=== PATIENT | male | born 1950 | race Caucasian/White ===

== ENCOUNTER 2016-09-11 15:10 | Emergency (ER) | payer MEDICARE, BC ==
[~2016-09-11] VITALS: Ht 182.9 cm; Wt 192.8 kg
[~2016-09-11 15:10] MED LIST: AMLO5TAB2 PO; CANA100T PO; CARV40CP PO; CLON0.2T PO; INSU100I13 SQ; INSU100I17 SQ; INSU100V13 SQ; METF10002 PO; MULT-18 PO; POTA10TA12 PO; vitamin c PO
[2016-09-11] MEDS ORDERED: LIDOCAINE/EPI/TETRACAINE TOPICAL GEL 3 ML. TP ONE ×2 (15:29→16:30)
--- NOTE | 2016-09-11 16:00 | RAD ---
CT head without contrast History: Fall and laceration to the head. Comparison: None. Procedure: Axial images are obtained of the head from the skull base through the vertex without IV contrast. Findings: The ventricles and sulci are normal for the patient's age. No mass-effect, intracranial mass, midline shift, hemorrhage or obvious acute infarction is identified. Basilar cisterns are patent. Bone windows demonstrate no significant calvarial abnormality. The visualized paranasal sinuses appear clear. Mild soft tissue prominence identified in the superior vertex could be artifact or due to small scalp contusion. Multiple hyperdensities in the bilateral basal ganglia probably faint calcifications.. Impression: 1. No acute intracranial process. Mild soft tissue prominence identified in the superior vertex could be artifact or due to small scalp contusion. PQRS Compliance Statement: One or more of the following individualized dose reduction techniques were utilized for this examination: 1. Automated exposure control 2. Adjustment of the mA and/or kV according to patient size 3. Use of iterative reconstruction technique
--- NOTE | 2016-09-11 16:07 | ED.ADGEN ---
Past History Past Medical History: Diabetes, GERD, High Cholesterol, Hypertension Past Surgical History: Appendectomy Alcohol Use: None Drug Use: None Adult General HPI HPI Patient is a 65-year-old male presents emergency department by EMS. Patient had a mechanical slip and fall just prior to arrival. He struck the back of his head against a stair and has a small 3 cm laceration with controlled bleeding patient denies any loss of consciousness. Denies any visual or gait disturbances. Denies any other injuries. Review of Systems Review of Systems Constitutional: Denies fever or chills [] Eyes: Denies change in visual acuity, redness, or eye pain [] HENT: Denies nasal congestion or sore throat [] Respiratory: Denies cough or shortness of breath [] Cardiovascular: No additional information not addressed in HPI [] GI: Denies abdominal pain, nausea, vomiting, bloody stools or diarrhea [] : Denies dysuria or hematuria [] Musculoskeletal: Denies back pain or joint pain [] Integument: Denies rash or skin lesions [] Neurologic: Denies headache, focal weakness or sensory changes [] Endocrine: Denies polyuria or polydipsia [] Current Medications Current Medications Current Medications Medications (Trade) Dose Ordered Sig/Sadie Start Time Stop Time Status Last Admin Dose Admin Lidocaine/ Epinephrine (Let Topical) 3 ml STK-MED ONCE 09/11/16 15:29 09/11/16 15:30 DC Allergies Allergies Allergies Coded Allergies Type Severity Reaction Last Updated Verified Antifungal - Imidazole Allergy Intermediate 12/28/14 Yes I S O L A T I O N *CONTACT* Allergy Unknown 12/31/14 Yes Physical Exam Physical Exam Constitutional: Well developed, well nourished, no acute distress, non-toxic appearance. [] HENT: Normocephalic, 3 cm laceration to the back of his head, bilateral external ears normal, oropharynx moist, no oral exudates, nose normal. [] Eyes: PERRLA, EOMI, conjunctiva normal, no discharge. [] Neck: Normal range of motion, no tenderness, supple, no stridor. [] Cardiovascular:Heart rate regular rhythm, no murmur [] Lungs & Thorax: Bilateral breath sounds clear to auscultation [] Abdomen: Bowel sounds normal, soft, no tenderness, no masses, no pulsatile masses. [] Skin: Warm, dry, no erythema, no rash. [] Extremities: No tenderness, no cyanosis, no clubbing, ROM intact, no edema. [] Neurologic: Alert and oriented X 3, normal motor function, normal sensory function, no focal deficits noted. [] Psychologic: Affect normal, judgement normal, mood normal. [] Current Patient Data Vital Signs Vital Signs Date Time Temp Pulse Resp B/P Pulse Ox O2 Delivery O2 Flow Rate FiO2 09/11/16 15:15 98.1 92 16 98 Room Air EKG EKG [] Radiology/Procedures Radiology/Procedures CT head without contrast History: Fall and laceration to the head. Comparison: None. Procedure: Axial images are obtained of the head from the skull base through the vertex without IV contrast. Findings: The ventricles and sulci are normal for the patient's age. No mass-effect, intracranial mass, midline shift, hemorrhage or obvious acute infarction is identified. Basilar cisterns are patent. Bone windows demonstrate no significant calvarial abnormality. The visualized paranasal sinuses appear clear. Mild soft tissue prominence identified in the superior vertex could be artifact or due to small scalp contusion. Multiple hyperdensities in the bilateral basal ganglia probably faint calcifications.. Impression: 1. No acute intracranial process. Mild soft tissue prominence identified in the superior vertex could be artifact or due to small scalp contusion. PQRS Compliance Statement: One or more of the following individualized dose reduction techniques were utilized for this examination: 1. Automated exposure control 2. Adjustment of the mA and/or kV according to patient size 3. Use of iterative reconstruction technique DICTATED AND SIGNED BY: VERONICA OWENS MD DATE: 09/11/16 1553 CC: KATE VERA MD; BERNA VU MD ~[] Course & Med Decision Making Course & Med Decision Making Pertinent Labs and Imaging studies reviewed. (See chart for details) Reassuring workup. Tolerated procedure well. Given supportive care and follow up instructions. [] Final Impression Final Impression scalp contusion scalp laceration[] Problems: Dragon Disclaimer Dragon Disclaimer This electronic medical record was generated, in whole or in part, using a voice recognition dictation system. Laceration Repair Lac Repair Indication: laceration Procedure: The patient was placed in the appropriate position and anesthesia around the lac was achieved with LET. The area was then cleansed. The laceration was closed with 3 yesica. The wound area was then dressed with bandaged Total repaired wound length: 3 cm Other Items: none The patient tolerated the procedure well Complications: none KATE VERA MD Sep 11, 2016 16:06
[2016-09-11 16:15] VITALS: BP 150/76
[2016-09-11] MEDS ORDERED: MIRA50TA PO (20:43)
[2016-09-11] MEDS ORDERED: METF10002 PO (20:43)
[2016-09-12] MEDS ORDERED: DRON400T PO (00:24)
[2016-09-12] MEDS ORDERED: NYST15CR TP (02:18)
[2016-09-12] MEDS ORDERED: INSU100I32 SQ (02:21)
== END 2016-09-11 16:35 | disposition home or self-care (01) ==
LOC: ER 15:10
DX: S00.03XA Contusion of scalp, initial encounter (principal); E11.9 Type 2 diabetes mellitus without complications; E78.00 Pure hypercholesterolemia, unspecified; K21.9 Gastro-esophageal reflux disease without esophagitis; I10 Essential (primary) hypertension; Z88.8 Allergy status to other drugs, medicaments and biological substances; Z91.041 Radiographic dye allergy status; W01.198A Fall on same level from slipping, tripping and stumbling with subsequent striking against other object, initial encounter; Y93.89 Activity, other specified; Y99.8 Other external cause status; Y92.89 Other specified places as the place of occurrence of the external cause
CPT/HCPCS: 12002; 70450; 99284-25

== ENCOUNTER 2016-09-11 17:13 | Inpatient (IN) | payer MEDICARE, BC ==
[~2016-09-11] VITALS: Ht 182.9 cm; Wt 197.8 kg
[2016-09-11] MEDS ORDERED: ONDANSETRON PF 4 MG/2 ML VIAL. IV PRN (18:15)
[2016-09-11] MEDS ORDERED: IV RINGERS SOLUTION,LACTATED 1,000 ML IV ONE ×2 (18:15)
--- NOTE | 2016-09-11 18:19 | ED.ADGEN ---
Past History Past Medical History: Diabetes, GERD, High Cholesterol, Hypertension, Other Past Surgical History: Appendectomy, Other Alcohol Use: None Drug Use: None Adult General Chief Complaint Chief Complaint " I was at [facility] office.. because I have been weak... fever... and just tired... they said I had the flu or a virus...".." I was at home.... and was going up the stairs.. and I fell and hit my head..." HPI HPI Patient is a 65 year old male who presents with above hx and complaints. Pt. recently given a diagnosis of influenza or viral syndrome. Patient normally follows Dr. Heredia. No recent travel. No specific ill contacts. Patient has contusion to the front forehead. CT completed earlier by Dr. Joyce showed no acute intracranial process. There is mild soft tissue prominence in the superior Vertex skull or contusion. Pt. family is quite concerned and pt. has agreed to be admitted for further eval and tx. Review of Systems Review of Systems Constitutional: Hx of fever or chills [] Eyes: Denies change in visual acuity, redness, or eye pain [] HENT: Denies nasal congestion or sore throat [] Hx. hit head Respiratory: Denies cough or shortness of breath [] Cardiovascular: No additional information not addressed in HPI [] GI: Denies abdominal pain, nausea, vomiting, bloody stools or diarrhea [] : Denies dysuria or hematuria [] Musculoskeletal: Denies back pain or joint pain []Generalized weakness. Integument: Denies rash or skin lesions [] Neurologic: Denies headache, focal weakness or sensory changes [] Endocrine: Denies polyuria or polydipsia [] Family History Family History Non-contributory Current Medications Current Medications Current Medications Medications (Trade) Dose Ordered Sig/Sadie Start Time Stop Time Status Last Admin Dose Admin Lactated Ringer's (Iv Lactated Ringers) 1,000 ml @ 100 mls/hr 1X ONCE 09/11/16 18:15 09/12/16 04:14 Ondansetron HCl 4 mg 4 mg PRN Q4HRS PRN 09/11/16 18:15 09/12/16 18:14 See Nursing for home meds Allergies Allergies Allergies Coded Allergies Type Severity Reaction Last Updated Verified Antifungal - Imidazole Allergy Intermediate 12/28/14 Yes I S O L A T I O N *CONTACT* Allergy Unknown 12/31/14 Yes See Nursing Physical Exam Physical Exam Constitutional:mild distress, non-toxic appearance. [] HENT: Normocephalic, contusion to forehead, , bilateral external ears normal, oropharynx moist, no oral exudates, nose normal. [] Eyes: PERRLA, EOMI, conjunctiva normal, no discharge. [ Glasses Neck: Normal range of motion, no tenderness, supple, no stridor. [] Neck more 17 circ. Cardiovascular: irregular Heart rate, Irregular rhythm, no murmur , Monitor PVCs, no p waves. Lungs & Thorax: Bilateral breath sounds clear to auscultation [] Abdomen: Bowel sounds normal, soft, no tenderness, no masses, no pulsatile masses. [] Old surgery Scar. Morbid obesity. Skin: Warm, dry,. Veinous stasis ulcer Rt. leg and erythema. Back: No tenderness, no CVA tenderness. [] Extremities: bilateral leg tenderness, no cyanosis, no clubbing, ROM intact, generalize weakness, unable to stand independent with out give away weakness, bilateral ankle edema. Veinous stasis changes. Ulcer 5x5 cm Rt meyers. Neurologic: Alert and oriented X 3, normal motor function, normal sensory function, no focal deficits noted. [] Psychologic: Affect normal, judgement normal, mood normal. [] Current Patient Data Vital Signs Vital Signs Date Time Temp Pulse Resp B/P Pulse Ox O2 Delivery O2 Flow Rate FiO2 09/11/16 17:13 101.3 92 24 93 Room Air Lab Results Laboratory Tests Test 09/11/16 18:15 Urine Collection Type Unknown Urine Color Yellow Urine Clarity Clear Urine pH 5.5 Urine Specific [place] 1.020 Urine Protein 30 mg/dl (NEG-TRACE) Urine Glucose (UA) Negmg/dL (NEG) Urine Ketones (Stick) 15mg/dL (NEG) Urine Blood Mod (NEG) Urine Nitrite Neg (NEG) Urine Bilirubin Neg (NEG) Urine Urobilinogen Dipstick 0.2mg/dL (0.2 mg/dL) Urine Leukocyte Esterase Neg (NEG) Urine RBC 6-10/HPF (0-2) Urine WBC 1-4/HPF (0-4) Urine Squamous Epithelial Cells Mod/LPF Urine Bacteria Few/HPF (0-FEW) Urine Mucus Mod/LPF Urine Opiates Screen Neg (NEG) Urine Methadone Screen Neg (NEG) Urine Barbiturates Neg (NEG) Urine Phencyclidine Screen Neg (NEG) Urine Amphetamine/Methamphetamine Neg (NEG) Urine Benzodiazepines Screen Neg (NEG) Urine Cocaine Screen Neg (NEG) Urine Cannabinoids Screen Neg (NEG) Urine Ethyl Alcohol Neg (NEG) EKG EKG My interpretation of EKG shows rate 91, Afib, PVCs, Lt. axis[] Radiology/Procedures Radiology/Procedures My interpretation of CXR shows cardiomegaly and pulmonary arteries. Blunting of the closed phrenic angles. CT of chest pending at time of admission. My interpretation CT head shows no shift, mass, cerebral edema, bleed or fracture. Does have findings soft tissue scalp at the area of contusion. Ultrasound and Dopplers studies pending at time of admission Course & Med Decision Making Course & Med Decision Making Pertinent Labs and Imaging studies reviewed. (See chart for details). Call placed to Dr. Uribe- Dr. Joyce. Plan admit for further eval. and tx. Discussed presentation, testing and tx plan with Dr. Uribe- will admit for further eval. and tx. Consult to Dr. Patel- for elev. trop,, htn, pvcs. Lovenox held- due low platelets. [] Final Impression Final Impression 1. Falling 2. Fever 3. Weakness 4. Head Injury 5. Morbid Obesity[] 6. Veinous Status Ulcer Rt leg 7. Pulmonary hypertension 8. CHF 9. Hypo-magnesium 10. Leukocytosis 11. . Anemia 12. Thrombocytopenia 13. Elevated D-dimer 14. Elevated Trop. 15. Moderate Malnutrition Alb. 3.1 16. DM 17. Deconditioned 18. Afib. / PVCs- CADz Problems: Dragon Disclaimer Dragon Disclaimer This electronic medical record was generated, in whole or in part, using a voice recognition dictation system. RENETTA CLEMONS MD Sep 11, 2016 18:18
--- NOTE | 2016-09-11 18:38 | EKG ---
[address] [address] Test Date: 2016-09-11 Test Time: 18:36:44 Pat Name: RICCI LEVINE Department: Room: Gender: M [employer]: : 1950 Requested By: RENETTA CLEMONS Order Number: [id number] Reading MD: Measurements Intervals [place] Rate: 91 P: [place]: QRS: -11 QRSD: 94 T: 112 QT: 338 QTc: 423 Interpretive Statements IRREGULAR RHYTHM, NO P-WAVE FOUND VENTRICULAR PREMATURE COMPLEX(ES) LEFTWARD AXIS QRS(T) CONTOUR ABNORMALITY CONSIDER ANTEROSEPTAL MYOCARDIAL DAMAGE T ABNORMALITY IN HIGH LATERAL LEADS ABNORMAL ECG
[2016-09-11 18:56] LABS: BASO % 0 % (0-3); EOS % 0 % (0-3); HEMATOCRIT 37.9 % (39.0-53.0); HEMOGLOBIN 12.4 g/dL (13.0-17.5); LYMPH # 0.7 x10^3/uL (1.0-4.8); LYMPH % 6 % (24-48); MEAN CORPUSCULAR HEMOGLOBIN 29 pg (25-35); MEAN CORPUSCULAR HGB CONC 33 g/dL (31-37); MEAN CORPUSCULAR VOLUME 90 fL (79-100); MONO # 1.8 x10^3/uL (0.0-1.1); MONO % 14 % (0-9); NEUT % 80 % (31-73); PLATELET COUNT 73 x10^3/uL (140-400); RED BLOOD COUNT 4.21 x10^6/uL (4.30-5.70); WHITE BLOOD COUNT 12.6 x10^3/uL (4.0-11.0)
[2016-09-11 19:02] LABS: AMPHETAMINE/METHAMPHETAMINE NEG (NEG); BARBITURATES NEG (NEG); BENZODIAZEPINES NEG (NEG); CANNABINOIDS NEG (NEG); COCAINE NEG (NEG); METHADONE NEG (NEG); OPIATES NEG (NEG); PHENCYCLIDINE NEG (NEG)
[2016-09-11 19:13] LABS: BILIRUBIN,URINE NEG (NEG); CLARITY,URINE CLEAR; COLOR,URINE YELLOW
[2016-09-11 19:14] LABS: NITRITE,URINE NEG (NEG); UROBILINOGEN,URINE 0.2 mg/dL (0.2 mg/dL)
[2016-09-11 19:16] LABS: ALBUMIN 3.1 g/dL (3.4-5.0); CALCIUM 8.7 mg/dL (8.5-10.1); CREATININE 1.1 mg/dL (0.7-1.3); MAGNESIUM 1.6 mg/dL (1.8-2.4); POTASSIUM 4.3 mmol/L (3.5-5.1); TOTAL BILIRUBIN 0.9 mg/dL (0.2-1.0); TOTAL PROTEIN 8.3 g/dL (6.4-8.2)
[2016-09-11 19:21] LABS: DIRECT BILIRUBIN 0.3 mg/dL (0.0-0.2)
[2016-09-11 19:24] LABS: BACTERIA,URINE FEW /HPF (0-FEW); SQUAMOUS EPITHELIAL CELL,UR MOD /LPF
[2016-09-11 19:29] LABS: GLUCOSE,URINE NEG (NEG)
[2016-09-11 19:56] LABS: INFLUENZA A PATIENT NEGATIVE (NEGATIVE); INFLUENZA B PATIENT NEGATIVE (NEGATIVE)
[2016-09-11] MEDS ORDERED: CEFTRIAXONE SODIUM 1 GM in IV NORMAL SALINE 50ML 50 ML IV ONE (20:00)
[2016-09-11] MEDS ORDERED: CEFTRIAXONE IM 1 GM VIAL. IM ONE (20:00)
[2016-09-11] MEDS ORDERED: IV NORMAL SALINE 50ML 50 ML ONE (20:22)
[2016-09-11] MEDS ORDERED: CEFTRIAXONE SODIUM 1 GM VIAL IV ONE (20:22)
[2016-09-11] MEDS ORDERED: MIRA50TA PO (20:43)
[2016-09-11] MEDS ORDERED: METF10002 PO (20:43)
[2016-09-11] MEDS ORDERED: FUROSEMIDE 40 MG/4 ML VIAL IVP ONE (20:45)
[2016-09-11] MEDS ORDERED: IOHEXOL 300 MG/ML 75 ML VIAL. IV ONE (20:45)
[2016-09-11] MEDS ORDERED: CONTRAST GIVEN MC PRN (20:45)
[2016-09-11] MEDS ORDERED: ENOXAPARIN ** NOTE DOSE ** SYRINGE SQ SCH (21:00)
--- NOTE | 2016-09-11 21:46 | RAD ---
PROCEDURE CT angiogram of the chest with intravenous contrast. HISTORY Dyspnea, elevated D-dimer. TECHNIQUE After administration of intravenous contrast, 75 mL Omnipaque 300 , CT pulmonary angiogram was performed. Axial 2D reconstructions were obtained. Coronal 3D MIPS were obtained. Exposure: One or more of the following individualized dose reduction techniques were utilized for this examination: 1. Automated exposure control. 2. Adjustment of the mA and/or kV according to patient size. 3. Use of iterative reconstruction technique. COMPARISON Same examination August 22, 2014. FINDINGS There is quantum mottle artifact secondary to the patient's large body habitus. There is also significantly suboptimal opacification of pulmonary arteries. No central or lobar pulmonary embolism is identified. Evaluation for smaller pulmonary embolism is limited. Main pulmonary artery appears enlarged with a diameter of 4.0 centimeters, suggesting pulmonary hypertension. Visualized thyroid is symmetric. Thoracic aorta is without evidence of dissection. Coronary artery calcifications are seen. Aortic valve calcifications are present. Heart and pericardium are unremarkable. No mediastinal lymphadenopathy is seen. No pneumothorax or pleural effusion is seen. No acute airspace disease is identified. Multiple thoracic disc osteophytes are seen. IMPRESSION 1. Significantly limited examination. No lobar or larger pulmonary embolism is identified. Evaluation for smaller pulmonary embolism is limited. 2. Main pulmonary artery is enlarged suggesting pulmonary hypertension. 3. No acute abnormality identified in the chest. Electronically signed by: Daniel Falk MD (Sep 11, 2016 21:44:34)
--- NOTE | 2016-09-11 23:12 | RAD ---
PROCEDURE Bilateral lower extremity venous Doppler. HISTORY Bilateral lower extremity pain and redness. Nonhealing wound. Diabetic. Morbid obesity. FINDINGS The veins of both lower extremities were interrogated under grayscale, color Doppler, and spectral Doppler modes. Examination is technically difficult secondary to patient body habitus. Bilateral calf veins are suboptimally visualized. The visualized veins are compressible and demonstrate normal Doppler flow dynamics. There is no evidence of deep venous thrombosis. IMPRESSION Limited examination. No evidence of lower extremity deep venous thrombosis. Electronically signed by: Daniel Falk MD (Sep 11, 2016 23:10:30)
[2016-09-11 23:15] VITALS: BP 103/54
--- NOTE | 2016-09-11 23:24 | RAD ---
PROCEDURE Bilateral lower extremity arterial Doppler. HISTORY Bilateral lower extremity edema. Redness. Nonhealing wound. Diabetic. Morbid obesity. TECHNIQUE Arteries of both lower extremities were interrogated under grayscale, color Doppler, and spectral Doppler modes. COMPARISON None. FINDINGS Imaging of the right lower extremity arteries is seen on images 2 through 17. Images at 18 through 32 demonstrate the left lower extremity arteries. Examination is technically difficult secondary to patient body habitus. Right common femoral artery and right proximal and mid superficial femoral artery demonstrate biphasic waveforms with normal velocities. The distal right superficial femoral artery is not visualized, it is uncertain but this may be due to body habitus. The right popliteal artery demonstrate biphasic waveforms. The proximal right posterior tibial artery demonstrates monophasic waveforms. The right dorsalis pedis artery demonstrates biphasic waveforms. The distal posterior tibial artery, peroneal artery, and right anterior tibial artery are not visualized. Left common femoral artery and proximal left superficial femoral artery demonstrate biphasic waveforms. The mid left superficial femoral artery demonstrates elevated peak systolic velocity of 228 centimeters/second and monophasic waveforms. The distal left superficial femoral artery is not visualized. Left popliteal artery demonstrates monophasic waveforms as does the proximal left posterior tibial artery. The dorsalis pedis artery demonstrates monophasic waveforms. Distal aspect of left posterior tibial artery, left peroneal artery, and left anterior tibial artery are not visualized. IMPRESSION 1. Elevated velocities are seen involving the mid left superficial femoral artery. The more distal arteries of the left lower extremity demonstrate monophasic waveforms. Consequently, there may be a focal stenosis of approximately 50 percent involving the mid left superficial femoral artery. 2. Distal aspect of the left superficial femoral artery, distal left posterior tibial artery, left peroneal artery, and left anterior tibial artery are not visualized. It is uncertain if these are occluded and/or poorly visualized secondary to habitus. 3. No focal stenosis is seen involving the arteries of right lower extremity. 4. Distal right superficial femoral artery, distal right posterior tibial artery, right peroneal artery, and right anterior tibial artery are not visualized. It is uncertain if these are occluded and/or poorly visualized secondary to habitus. Electronically signed by: Daniel Falk MD (Sep 11, 2016 23:23:21)
[2016-09-11 23:28] LABS: PLT ESTIMATE DECREASED (ADEQUATE)
[2016-09-12] MEDS ORDERED: DRON400T PO (00:24)
[2016-09-12] MEDS ORDERED: NYST15CR TP (02:18)
[2016-09-12] MEDS ORDERED: INSU100I32 SQ (02:21)
[2016-09-12] MEDS ORDERED: DEXTROSE 50% 25 GM / 50ML DISP.SYRIN. IV PRN (03:15)
[2016-09-12 04:58] LABS: BASO % 0 % (0-3); EOS % 0 % (0-3); HEMATOCRIT 36.8 % (39.0-53.0); HEMOGLOBIN 11.9 g/dL (13.0-17.5); LYMPH # 1.1 x10^3/uL (1.0-4.8); LYMPH % 9 % (24-48); MEAN CORPUSCULAR HEMOGLOBIN 29 pg (25-35); MEAN CORPUSCULAR HGB CONC 32 g/dL (31-37); MEAN CORPUSCULAR VOLUME 91 fL (79-100); MONO # 1.6 x10^3/uL (0.0-1.1); MONO % 13 % (0-9); NEUT # 9.5 x10^3uL (1.8-7.7); NEUT % 77 % (31-73); PLATELET COUNT 65 x10^3/uL (140-400); RED BLOOD COUNT 4.06 x10^6/uL (4.30-5.70); RED CELL DISTRIBUTION WIDTH 15.5 % (11.5-14.5); WHITE BLOOD COUNT 12.3 x10^3/uL (4.0-11.0)
[2016-09-12 04:59] LABS: CALCIUM 8.1 mg/dL (8.5-10.1); CREATININE 1.3 mg/dL (0.7-1.3); GFR 55.2; POTASSIUM 3.5 mmol/L (3.5-5.1)
[2016-09-12 06:07] VITALS: BP 116/55
--- NOTE | 2016-09-12 08:49 | RAD ---
Indication: Fall today with pain. Technique: Upright portable chest radiograph was obtained. There is slight motion degradation. Comparison is from March 25, 2016. Findings: Scatter artifact from body habitus limits evaluation. There is mild elevation of the right hemidiaphragm, stable. The lungs are clear. The cardiopulmonary silhouette is within normal limits. The bony structures are intact. Impression: No active pulmonary disease.
[2016-09-12] MEDS ORDERED: MIRABEGRON PO SCH (09:00)
--- NOTE | 2016-09-12 09:23 | CONS ---
DATE OF CONSULTATION: 09/12/2016 REASON FOR CONSULTATION: Positive troponin. HISTORY OF PRESENT ILLNESS: The patient is a 65-year-old male with multiple comorbidities as noted below who presents to the hospital after a fall. He was noted to have a left forehead contusion and CT scan of the head does not reveal any significant pathology. Unfortunately, he also has multiple issues including failure to thrive and morbid obesity and for this, he was admitted for further evaluation. His initial evaluation in the ER also included laboratory markers, which revealed elevated troponin and an elevated D-dimer. He underwent a CT scan of the chest, which did not reveal any major pulmonary artery emboli. He also had lower extremity deep venous scanning, which did not suggest any significant thrombus, although there was limited imaging due to his body habitus. The patient also had a nonhealing right lower extremity wound and presented with fevers in the setting and has been admitted for treatment of various issues. With respect to his cardiovascular status at baseline he appears to be NYHA class 3 and mostly dependent on a walker to ambulate around the house. He is limited mostly due to his obesity. He reports that he usually follows with Dr. Flower at [facility] and he most recently apparently had a stress test 2 to 3 months ago, which he reports to be within normal limits. The patient denies any prior coronary artery disease including stents. He does report that he takes Multaq for atrial fibrillation, although he does not appear to be on anticoagulation likely related to his thrombocytopenia. PAST MEDICAL HISTORY: 1. Presumed diastolic heart failure. 2. Atrial fibrillation, not on anticoagulation. 3. Diabetes. 4. Morbid obesity. 5. Lower extremity arterial disease based on duplex scanning. FAMILY HISTORY: Noncontributory. SOCIAL HISTORY: The patient lives at home with his . He is retired. ALLERGIES: ANTIFUNGAL MEDICATIONS AND IMIDAZOLE. CURRENT CARDIOVASCULAR MEDICATIONS: 1. Multaq 400 mg p.o. b.i.d. 2. Carvedilol 25 mg p.o. b.i.d. 3. Aspirin 81 mg p.o. daily. REVIEW OF SYSTEMS: Negative for 10 out of 14 systems reviewed unless otherwise mentioned above in HPI. PHYSICAL EXAMINATION: VITAL SIGNS: Currently 97.8 temperature, but previously was noted to be 101.3. Heart rate 83 and irregular, respiratory rate 24, blood pressure 116/55, and pulse ox 93% on room air. GENERAL: He appears to be having poor hygiene. He is morbidly obese. HEAD AND NECK: Unremarkable. HEART: Irregularly irregular rhythm without any significant rubs or gallops. He does have a systolic murmur throughout pericardium suggestive of mitral regurgitation. LUNGS: Difficult to auscultation due to body habitus, but fairly clear anteriorly with mild end expiratory wheezing at the posterior lung bases. ABDOMEN: Obese, nontender, and nondistended. Bowel sounds difficulty to hear. EXTREMITIES: Bilateral chronic venous stasis changes and thickening of the skin related to lower extremity arterial disease as well as diabetes. NEUROLOGIC: No focal deficits. Overall weak. MUSCULOSKELETAL: Left forehead contusion and abrasion, but otherwise no other abnormalities. DIAGNOSTIC STUDIES: Laboratories, hemoglobin 11.9, WBCs 12.3, platelets 65,000, and creatinine 1.3. Cardiac enzymes 0.064, 0.060 D-dimer 2.16. Urine toxicology screen negative. Urinalysis is unremarkable. Serology for influenza and group a strep is negative. CT scan of the chest is negative for any embolus, bilateral lower extremity arterial studies suggestive of severe peripheral arterial disease. Lower extremity ultrasound negative for DVT. IMPRESSION: 1. Elevated troponin in the setting of multiple comorbidities. 2. Atrial fibrillation, paroxysmal, not on anticoagulation secondary to thrombocytopenia. 3. Presumed diastolic heart failure. 4. Morbid obesity. 5. Lower extremity arterial disease with diabetic wounds and possible infection present on admission. RECOMMENDATIONS: 1. At this present time his acute issues appear to be related to his diabetic wound and poor functional capacity. 2. Continue current cardiovascular medication regimen. No acute indication for anticoagulation. Suspect that his troponin elevation is related to his decompensated heart failure. 3. No aggressive diuresis given his recent fevers and possible sepsis. As long as he maintains his saturation, we would continue monitoring for now. Obtain limited echo for further assessment of LV systolic function. Thank you for this consultation. SADA STRAUSS MD DR: STEVIE/slim JOB#: [id number] / [id number] MICHELINE
[2016-09-12] MEDS ORDERED: IV NORMAL SALINE 250ML 250 ML ONE (09:38)
[2016-09-12] MEDS: CEFTRIAXONE SODIUM 1 GM in IV NORMAL SALINE 50ML 50 ML IV SCH (09:41)
[2016-09-12] MEDS: MULTIVITAMIN with MINERAL TABLET. PO SCH (09:42)
[2016-09-12] MEDS: ASPIRIN 81 MG TAB.CHEW PO SCH (09:42)
[2016-09-12] MEDS: MIRABEGRON 25 MG TAB.ER.24H PO SCH (09:42)
[2016-09-12] MEDS: DRONEDARONE HCL 400 MG TABLET PO SCH ×2 (09:44→20:54)
[2016-09-12] MEDS: CARVEDILOL 25 MG TABLET PO SCH ×2 (09:45→17:00)
[2016-09-12] MEDS: NYSTATIN 100,000 UNIT/GM TOPICAL CREAM 15GM TUBE. TP SCH ×3 (09:46→21:10)
[2016-09-12] MEDS: INSULIN ASPART 300 UNITS/3 ML INSULN.PEN SQ SCH ×3 (09:51→17:00)
[2016-09-12 10:31] VITALS: BP 117/58
[2016-09-12 10:33] VITALS: BP 137/71
--- NOTE | 2016-09-12 13:08 | CARD ---
APPROVED REPORT EXAM: Two-dimensional and M-mode echocardiogram with Doppler and color Doppler. Other Information Quality : FairHR: 84bpm INDICATION Syncope 2D DIMENSIONS Left Atrium(2D)4.5 (1.6-4.0cm)IVSd1.0 (0.7-1.1cm) Aortic Root(2D)3.0 (2.0-3.7cm)LVDd5.6 (3.9-5.9cm) LVOT Diameter2.5 (1.8-2.4cm)PWd1.1 (0.7-1.1cm) LA Afvesy94 (18-58mL)LVDs3.4 (2.5-4.0cm) FS (%) 38.4 %SV103.3 ml LVEF(%)68.1 (>50%)CO8.7 L/min M-Mode DIMENSIONS Aortic Cusp Exc1.31 (1.5-2.0cm) Aortic Valve AoV Peak Joshua.262.4cm/sAoV VTI72.2cm AO Peak GR.27.6mmHgAO Mean GR.26mmHg HAILY (VTI)1.74cm2 Mitral Valve MV E Ipsqpiyh033.7cm/sMV E Peak Gr.5mmHg MV DECEL [id number] A Dnrvldwb23.1cm/s MV YQM46ngS/A Ratio1.8 MV A Aaeatlty323ihOPZ (PHT)2.82cm2 TDI Lateral E' P. V12.00cm/sMedial E' P. V13.00cm/s E/Lateral E'9.5E/Medial E'8.7 Tricuspid Valve TR P. Etlqleaa248rm/sRAP TGRMCUPC5wgIq TR Peak Gr.64ehFvNHPD28wmEh LEFT VENTRICLE The left ventricle is normal size. There is normal left ventricular wall thickness. The left ventricu lar systolic function is normal and the ejection fraction is within normal range. EF 55% Wall motion not well visualized. Grossly appears normal. There is no left ventricular aneurysm. RIGHT VENTRICLE The right ventricle is normal size. There is normal right ventricular wall thickness. The right ventr icular systolic function is normal. ATRIA The left atrium is mildly dilated. The right atrium size is normal. The interatrial septum is intact with no evidence for an atrial septal defect or patent foramen ovale as noted on 2-D or Doppler imagi ng. AORTIC VALVE The aortic valve is mildly calcified with mild restrictive excursion. Doppler and Color Flow revealed no significant aortic regurgitation. Suspect mild to moderate aortic stenosis. Mean gradient of 25 m m hg with dimensionless index of 0.32 There is no aortic valvular vegetation. MITRAL VALVE The mitral valve is normal in structure and function. There is no evidence of mitral valve prolapse. There is no mitral valve stenosis. Doppler and Color Flow revealed trace to mild mitral regurgitation . TRICUSPID VALVE Doppler and Color Flow revealed mild tricuspid regurgitation. There is no tricuspid valve stenosis. PULMONIC VALVE Doppler and Color Flow revealed no pulmonic valvular regurgitation. There is no pulmonic valvular kailey nosis. GREAT VESSELS The aortic root is normal in size. Dilated IVC with poor inspiration collapse is consistent with elev ated right atrial pressure. PERICARDIAL EFFUSION There is no pleural effusion. There is a posible trace pericardial effusion. Critical Notification Critical Value: No <Conclusion> Wall motion not well visualized. Grossly appears normal. Suspect mild to moderate aortic stenosis. Mean gradient of 25 mm hg with dimensionless index of 0.32 Dilated IVC with poor inspiration collapse is consistent with elevated right atrial pressure. The left ventricular systolic function is normal and the ejection fraction is within normal range. EF 55%
[2016-09-12 16:17] VITALS: BP_SYST 109; BP_SYST 137; BP_DIAS 71; BP_DIAS 73
[2016-09-12 19:42] VITALS: BP 116/59
[2016-09-12] MEDS: CLOTRIMAZOLE 1% TOPICAL CREAM 30GM TUBE. TP SCH (20:54)
[2016-09-12] MEDS: INSULIN DETEMIR 300 UNITS/3 ML INSULN.PEN. SQ SCH (21:29)
--- NOTE | 2016-09-12 22:05 | PN ---
DATE: 09/12/2016 SUBJECTIVE: The patient was brought in here, fallen, hit his head significantly, had a mild concussion, was admitted to the hospital for further evaluation and treatment thereof. The patient has been feeling generalized weakness and unable to take care of himself, and so he was admitted to the hospital for further evaluation. The patient had multiple comorbidities. He has noted he suffered a concussion and contusion to the head. He is a NYHA class 3. He has used a walker and ambulates. The patient otherwise seems to be resting fairly comfortably, but still in quite a bit of pain. His legs are wrapped up from multiple injuries to that area. The patient was admitted for further evaluation. He also has some type of chronic thrombocytopenia, chronic atrial fibrillation. PAST MEDICAL HISTORY: Diastolic heart failure, chronic atrial fibrillation, type 2 diabetes, morbid obesity, venous stasis, infections of the lower extremities. SOCIAL HISTORY: The patient lives with his , retired. Denies smoking, alcohol, or drug use. ALLERGIES: ANTIFUNGAL MEDICATION and IMIDAZOLE. FAMILY HISTORY: Noncontributory. CURRENT MEDICATIONS: Multaq 400 mg b.i.d., carvedilol 25 mg b.i.d., aspirin 81 mg daily. The patient's allergy is as noted above. REVIEW OF SYSTEMS: The patient does have a headache, has a contusion to his head. OBJECTIVE: VITAL SIGNS: Blood pressure 130/70, respiratory rate 22, pulse 70, afebrile. HEENT: The patient's head was traumatic. There was bruising noted to the head with marked abrasion to the head itself. Eyes: PERRLA. EOMI. Sclerae are clear. Fundi benign. GENERAL: The patient is fairly lethargic. LUNGS: Diminished throughout, but clear. CARDIOVASCULAR: Regular sinus rhythm. ABDOMEN: Soft, nontender, very protuberant, very markedly morbidly obese. EXTREMITIES: No clubbing or cyanosis. Multiple bruising to the lower extremities as well, and otherwise, basically unremarkable there. Able to move, but significantly infected to the lower legs. He will be receiving some IV antibiotic therapy there. He also has severe tinea pedis to his feet bilaterally. The skin is peeling off and markedly infected. We will try to put some Clotrimazole to that area. ASSESSMENT: Concussion and contusion to the head, multiple falls, generalized weakening and deconditioning. NYHA class 3. Severe tinea pedis cellulitis to the lower extremities, left greater than right. PLAN: Continue on IV antibiotic therapy. PT, OT make further evaluation on him as indicated with further evaluation for placement of home with increased strength was what attempted here as well as monitor these injuries to the head. We are awaiting the CT abdomen report as well. BERNA VU MD DR: ASHU/slim JOB#: [id number] / [id number]
[2016-09-13 00:18] VITALS: BP 115/63
[2016-09-13 06:23] VITALS: BP 133/69
[2016-09-13] MEDS ORDERED: ACETAMINOPHEN 325 MG TABLET PO PRN (06:30)
--- NOTE | 2016-09-13 06:47 | ACF ---
Admission Criteria Forms ATRIAL FIBRILLATION Clinical Indications for Admission to Inpatient Care (Place 'X' for any and all applicable criteria): Admission indicated for ANY ONE of the following(1)(2)(3)(4)(5) : [ ]I. Myocardial ischemia [ ]II. Dyspnea or hypoxemia [ ]III. Hemodynamic instability [X]IV. Heart failure (e.g., pulmonary edema) (7) [ ]V. New-onset (less than 48 hours) atrial fibrillation with high risk for causing complications secondary to comorbidities (eg, symptomatic heart failure ) [ ]. Altered mental status [ ]VII. Syncope [ ]VIII. Patient has implantable cardioverter defibrillator that has fired more than once within past 24hr or needs immediate adjustment of settings that cannot be done other than in inpatient setting. (8) [ ]IX. Suspected accessory pathway (e.g., Jdnsg-Xozslwheu-Pwrkg syndrome) on ECG [ ]X. Recent systemic thromboembolism (eg, stroke) [ ]XI. Medication toxicity (e.g., digitalis) causing arrhythmia(9) [ ]XII. Underlying medical condition that necessitates inpatient care (e.g., thyrotoxicosis, pneumonia) (10) [ ]XIII. Continuous ECG monitoring is required for condition causing arrhythmia (e.g., severe hyperkalemia, hypokalemia, acid-base disturbance).(11)(12)(13) [ ]XIV. Initiation of antiarrhythmic drug therapy is needed in patient at high risk of adverse effects as indicated by ANY ONE of the following: [ ]a) Significant structural heart disease (e.g., reduced ejection fraction, congenital heart disease, valvular heart disease) [ ]b) Prolonged QT interval [ ]c) Underlying sinus node or atrioventricular conduction disturbances [ ]d) Need for treatment with antiarrhythmic drugs that have significant proarrhythmic potential (e.g., dofetilide, sotalol, procainamide) [ ]e) Patient whose sinus rhythm has never been observed on ECG [ ]XV. Intolerable symptoms despite optimal outpatient treatment [ ]XVI. Elective or urgent cardioversion that cannot be performed on outpatient basis or during observation care. [A] (Use also Atrial Fibrillation: Observation Care ) as appropriate.(14) [ ]XVII.Contraindications and/or Inappropriate clinical situations for Observational Care in patients with Atrial Fibrillation, when ANY ONE of the following is required: [ ]a) Patient with High risk of cardiac embolism (e.g, patients with previous cardiac embolism, LVEF < 40%, age >75 and patients with prosthetic valve) 18 [ ]b) Patient with Moderate risk including DM patient, CAD and patient aged 65-75 18 [ ]c) Patient with any change in cardiac biomarker especially troponin should be managed as high risk in an inpatient setting 19 [ ]d) Physician judgement irrespective of ECG and other diagnostic findings 20 [ ]XVIII.General contraindications and/or Inappropriate clinical situations for Observational Care in patients with Atrial Fibrillation, when ANY ONE of the following is required: [ ]a) Prediction of prolongation of LOS based on ANY ONE of the following may be considered as a contraindication for observational care 2, 3, 4, 5, 6, 7, 8, 9, 10, 11 [ ]i) Age > 65 yrs. [ ]ii) Patient arriving by ambulance [ ]iii) Patient with high acuity [ ]iv) Patient requiring vital sign monitoring [ ]v) Patient on IV medication [ ]b) Systolic blood pressures 180mmHg 3,12 [ ]c) Patient with altered mental status including delirium and other alteration of consciousness3 [ ]d) Patient whose discharge disposition will be to a longterm home or rehabilitation home should not be managed in Emergency Department Observation Unit. CMS rule requires 3 days hospital stay before such placement.3,13 [ ]e) Patient with failure to thrive due to broad array of etiologies 3,16,17 [ ]f) Inability to ambulate 3,14 Extended stay beyond goal length of stay may be needed for (1)(25)(26): [ ]a) Unstable comorbidities [ ]b) Persistently uncontrolled atrial fibrillation or other arrhythmias [ ]c) Acute thromboembolic event (e.g., stroke, limb ischemia) [ ]d) Need for inpatient attainment of full anticoagulation The original [employer] content created by [employer] has been revised. The portions of the content which have been revised are identified through the use of italic text or in bold, and [facility] has neither reviewed nor approved the modified material. All other unmodified content is copyright [employer]. Please see references footnoted in the original [facility] edition 2016 Admission Criteria Met?: Yes JULIANNE WASHINGTON Sep 13, 2016 06:47
[2016-09-13] MEDS: INSULIN ASPART 300 UNITS/3 ML INSULN.PEN SQ SCH ×3 (07:40→16:28)
[2016-09-13] MEDS: ASPIRIN 81 MG TAB.CHEW PO SCH (07:41)
[2016-09-13] MEDS: CARVEDILOL 25 MG TABLET PO SCH ×2 (07:41→16:53)
[2016-09-13] MEDS: MULTIVITAMIN with MINERAL TABLET. PO SCH (07:41)
[2016-09-13] MEDS: DRONEDARONE HCL 400 MG TABLET PO SCH ×2 (07:42→20:44)
[2016-09-13] MEDS: MIRABEGRON 25 MG TAB.ER.24H PO SCH (07:42)
[2016-09-13] MEDS: COLLAGENASE 250 UNIT/GM TOPICAL OINTMENT 30GM TUBE. TP SCH (07:42)
[2016-09-13] MEDS: NYSTATIN 100,000 UNIT/GM TOPICAL CREAM 15GM TUBE. TP SCH ×3 (07:43→20:50)
[2016-09-13] MEDS: CLOTRIMAZOLE 1% TOPICAL CREAM 30GM TUBE. TP SCH ×2 (07:43→20:50)
[2016-09-13] MEDS: CEFTRIAXONE SODIUM 1 GM in IV NORMAL SALINE 50ML 50 ML IV SCH (07:43)
[2016-09-13 10:45] VITALS: BP 103/58
[2016-09-13] MEDS ORDERED: FUROSEMIDE 40 MG/4 ML VIAL IVP ONE (10:45)
[2016-09-13 15:17] VITALS: BP 122/70
[2016-09-13 17:47] VITALS: BP 112/76
[2016-09-13] MEDS: INSULIN DETEMIR 300 UNITS/3 ML INSULN.PEN. SQ SCH (20:48)
[2016-09-13 23:29] VITALS: BP 146/69
--- NOTE | 2016-09-14 02:33 | PN ---
DATE: 09/13/2016 SUBJECTIVE: The patient has generalized weakness with fall and hitting his head. CT scan result of his head is still pending. Otherwise, the patient is resting fairly comfortably, says he is still fairly weak. OBJECTIVE: VITAL SIGNS: Blood pressure 110/76, afebrile, and respiratory rate 20. GENERAL: The patient is alert and oriented. HEENT: Contusion in the left side of the head . Eyes: PERRLA, EOMI. Sclerae are clear. Fundi benign. Mouth and throat were normal. NECK: Supple, without JVD or thyromegaly. LUNGS: Diminished, but were clear. CARDIOVASCULAR: Regular sinus rhythm, S1, S2, without murmur, rub, thrill, or extra heart sounds. ABDOMEN: Soft, nontender. EXTREMITIES: The patient has protuberant bruises to that the knees and elbows . ASSESSMENT: Fall and contusion to the left side of the head with concussion, morbid obesity, anemia of chronic disease, type 2 diabetes, elevated troponins. So, despite his multiple falls and his injuries the patient is still making fairly good progress and we will go ahead and continue with rehabilitation care, possible swing bed. IMPRESSION: Contusion to the head, loss of consciousness, morbid obesity, falling, and generalized weakness. BERNA VU MD DR: ASHU/slim JOB#: [id number] / [id number]
[2016-09-14 07:19] LABS: BASO # 0.1 x10^3/uL (0.0-0.2); BASO % 1 % (0-3); EOS # 0.1 x10^3/uL (0.0-0.7); EOS % 1 % (0-3); HEMATOCRIT 37.4 % (39.0-53.0); HEMOGLOBIN 12.1 g/dL (13.0-17.5); LYMPH # 1.5 x10^3/uL (1.0-4.8); LYMPH % 11 % (24-48); MEAN CORPUSCULAR HEMOGLOBIN 29 pg (25-35); MEAN CORPUSCULAR HGB CONC 32 g/dL (31-37); MEAN CORPUSCULAR VOLUME 90 fL (79-100); MONO # 1.8 x10^3/uL (0.0-1.1); MONO % 14 % (0-9); NEUT # 9.4 x10^3uL (1.8-7.7); NEUT % 73 % (31-73); PLATELET COUNT 83 x10^3/uL (140-400); RED BLOOD COUNT 4.15 x10^6/uL (4.30-5.70); RED CELL DISTRIBUTION WIDTH 15.1 % (11.5-14.5); WHITE BLOOD COUNT 12.8 x10^3/uL (4.0-11.0)
[2016-09-14 07:38] LABS: ALBUMIN 2.7 g/dL (3.4-5.0); ALBUMIN/GLOBULIN RATIO 0.6 (1.0-1.7); GFR 74.8; POTASSIUM 3.7 mmol/L (3.5-5.1); TOTAL PROTEIN 7.5 g/dL (6.4-8.2)
[2016-09-14] MEDS ORDERED: METFORMIN 500 MG TABLET. PO SCH (08:00)
[2016-09-14 08:12] VITALS: BP 142/65
[2016-09-14] MEDS: COLLAGENASE 250 UNIT/GM TOPICAL OINTMENT 30GM TUBE. TP SCH (08:35)
[2016-09-14] MEDS: NYSTATIN 100,000 UNIT/GM TOPICAL CREAM 15GM TUBE. TP SCH ×2 (08:35→14:00)
[2016-09-14] MEDS: CEFTRIAXONE SODIUM 1 GM in IV NORMAL SALINE 50ML 50 ML IV SCH (08:35)
[2016-09-14] MEDS: CLOTRIMAZOLE 1% TOPICAL CREAM 30GM TUBE. TP SCH (08:36)
[2016-09-14] MEDS: ASPIRIN 81 MG TAB.CHEW PO SCH (08:36)
[2016-09-14] MEDS: MULTIVITAMIN with MINERAL TABLET. PO SCH (08:36)
[2016-09-14] MEDS: CARVEDILOL 25 MG TABLET PO SCH (08:37)
[2016-09-14] MEDS: MIRABEGRON 25 MG TAB.ER.24H PO SCH (08:37)
[2016-09-14] MEDS: DRONEDARONE HCL 400 MG TABLET PO SCH (08:37)
[2016-09-14] MEDS: INSULIN ASPART 300 UNITS/3 ML INSULN.PEN SQ SCH ×2 (08:43→11:58)
[2016-09-14] MEDS ORDERED: DIPHENOXYLATE/ATROPINE TABLET. PO PRN (10:00)
[2016-09-14] MEDS ORDERED: ZOLPIDEM 5 MG TABLET. PO PRN (10:00)
[2016-09-14] MEDS ORDERED: BISMUTH SUBSALICYLATE 262 MG TAB.CHEW PO PRN (10:15)
[2016-09-14 12:15] VITALS: BP 112/54
[2016-09-14 15:01] VITALS: BP 146/77
[2016-09-14] MEDS ORDERED: ASPI81TA2 PO (16:01)
[2016-09-14] MEDS ORDERED: ACET325T9 PO (16:01)
[2016-09-14] MEDS ORDERED: CLOT15CR4 TP (16:02)
[2016-09-14] MEDS ORDERED: BISM262T7 PO (16:02)
[2016-09-14] MEDS ORDERED: COLL30OI TP (16:03)
[2016-09-14] MEDS ORDERED: DIPH1TAB PO (16:03)
[2016-09-14] MEDS ORDERED: LACT1CAP6 PO (16:04)
[2016-09-14] MEDS ORDERED: ZOLP5TAB5 PO (16:05)
[2016-09-14] MEDS ORDERED: FURO40TA4 PO (16:06)
[2016-09-15] MEDS ORDERED: LACTOBACILLUS ACIDOPH & BULGAR 1 TABLET. PO SCH (09:00)
[2016-09-15 17:13] LABS: C DIFF BY PCR Positive (Negative)
--- NOTE | 2016-09-16 05:09 | EKG ---
[address] [address] Test Date: 2016-09-12 Test Time: 15:27:11 Pat Name: RICCI LEVINE Department: Room: 117 A Gender: M Alarm Mechanism Adjuster: JENNIFER : 1950 Requested By: BERNA VU Order Number: [id number] Reading MD: Measurements Intervals [place] Rate: 67 P: 34 AR: 272 QRS: -4 QRSD: 100 T: 73 QT: 438 QTc: 466 Interpretive Statements SINUS RHYTHM VENTRICULAR PREMATURE COMPLEX(ES) PROLONGED AR INTERVAL LEFTWARD AXIS QRS(T) CONTOUR ABNORMALITY CONSIDER ANTEROLATERAL MYOCARDIAL DAMAGE RI6.01 Unconfirmed report Compared to ECG 08/21/2014 18:06:20 T-wave abnormality no longer present
== END 2016-09-14 16:51 | disposition swing bed (61) | DRG 872 ==
LOC: ER 17:13 → 1 SOUTH 18:16
PROVIDERS: ADMIT Family Medicine; ATTEND Family Medicine
DX: A41.9 Sepsis, unspecified organism (principal); S06.0X9A Concussion with loss of consciousness of unspecified duration, initial encounter; L03.116 Cellulitis of left lower limb; L03.115 Cellulitis of right lower limb; I50.32 Chronic diastolic (congestive) heart failure; Z68.43 Body mass index [BMI] 50.0-59.9, adult; W18.39XA Other fall on same level, initial encounter; E66.01 Morbid (severe) obesity due to excess calories; D63.8 Anemia in other chronic diseases classified elsewhere; D69.6 Thrombocytopenia, unspecified; B34.9 Viral infection, unspecified; B35.3 Tinea pedis; E11.9 Type 2 diabetes mellitus without complications; E78.00 Pure hypercholesterolemia, unspecified; I48.2 Chronic atrial fibrillation; I87.8 Other specified disorders of veins; K21.9 Gastro-esophageal reflux disease without esophagitis; R29.6 Repeated falls; Z79.899 Other long term (current) drug therapy; Z90.49 Acquired absence of other specified parts of digestive tract; Y93.89 Activity, other specified; Y92.89 Other specified places as the place of occurrence of the external cause; Y99.8 Other external cause status; Z79.82 Long term (current) use of aspirin; I11.0 Hypertensive heart disease with heart failure
CPT/HCPCS: 12002; 36415; 70450; 71010; 71275; 80048; 80053; 80076; 81001; 82553; 82947; 83036; 83605; 83690; 83735; 83880; 84443; 84484; 85008; 85027; 85379; 85610; 85730; 87040; 87070; 87324; 87641; 87804; 87880; 93005; 93306; 93923; 93970; 96361; 96374; G0481; J0696; J0775; J1815; J1940; J7050; J7120; Q9967; 99284-25; 99285-25

== ENCOUNTER 2016-09-14 16:49 | Inpatient (IN) | payer MEDICARE, BC ==
[~2016-09-14] VITALS: Ht 182.9 cm; Wt 188.4 kg
[~2016-09-14 16:49] MED LIST changes: +ACET325T9 PO; +ASPI81TA2 PO; +BISM262T7 PO; +CLOT15CR4 TP; +COLL30OI TP; +DIPH1TAB PO; +DRON400T PO; +FURO40TA4 PO; +INSU100I32 SQ; +LACT1CAP6 PO; +MIRA50TA PO; +NYST15CR TP; +ZOLP5TAB5 PO
[2016-09-14 17:01] VITALS: BP 146/77
[2016-09-14] MEDS ORDERED: BISMUTH SUBSALICYLATE 262 MG TAB.CHEW PO PRN (17:15)
[2016-09-14] MEDS ORDERED: DIPHENOXYLATE/ATROPINE TABLET. PO PRN (17:15)
[2016-09-14] MEDS ORDERED: ACETAMINOPHEN 325 MG TABLET PO PRN (17:15)
[2016-09-14] MEDS: METFORMIN 500 MG TABLET. PO SCH (17:36)
[2016-09-14] MEDS: CARVEDILOL 25 MG TABLET PO SCH (17:36)
[2016-09-14 19:08] VITALS: BP 121/68
[2016-09-14] MEDS: CLOTRIMAZOLE 1% TOPICAL CREAM 30GM TUBE. TP SCH (20:50)
[2016-09-14] MEDS: DRONEDARONE HCL 400 MG TABLET PO SCH (20:50)
[2016-09-14] MEDS: ZOLPIDEM 5 MG TABLET. PO PRN (20:50)
[2016-09-14] MEDS: NYSTATIN 100,000 UNIT/GM TOPICAL CREAM 15GM TUBE. TP SCH (20:50)
[2016-09-14] MEDS: INSULIN DETEMIR 300 UNITS/3 ML INSULN.PEN. SQ SCH (20:51)
--- NOTE | 2016-09-15 00:09 | PN ---
DATE: 09/14/2016 SUBJECTIVE: The patient having severe problems with mobilization, has severe arthritis of the knee and needs a lift chair eligible for such because of his inability to get up and out of the chair without assistance because of the severity of the arthritis of his knee per se. OBJECTIVE: VITAL SIGNS: Blood pressure 146/77, respiratory rate 18 and afebrile. HEENT: The wound on top of his head is healing well. LUNGS: Diminished, but clear. CARDIOVASCULAR: Regular sinus rhythm, S1, S2, without murmur, rub, thrill, or extra heart sounds. ABDOMEN: Soft, protuberant. EXTREMITIES: No clubbing, cyanosis, markedly swollen, hypertrophy to the knees consistent with the patient's history of his severe degenerative arthritis of the knee. OVERALL IMPRESSION: Therefore of generalized weakness, failure to thrive, severe arthritis, especially of the knees, inability to mobilize, weakness, fall with contusion to the head, mild concussion secondary to fall. PLAN: As above. The patient will continue with physical and occupational therapy and make further evaluation on him as indicated. BERNA VU MD DR: ASHU/slim JOB#: [id number] / [id number]
[2016-09-15 05:11] VITALS: BP 145/76
[2016-09-15] MEDS: MULTIVITAMIN with MINERAL TABLET. PO SCH (08:23)
[2016-09-15] MEDS: CARVEDILOL 25 MG TABLET PO SCH ×2 (08:24→17:32)
[2016-09-15] MEDS: ASPIRIN 81 MG TAB.CHEW PO SCH (08:24)
[2016-09-15] MEDS: LACTOBACILLUS ACIDOPH & BULGAR 1 TABLET. PO SCH (08:24)
[2016-09-15] MEDS: METFORMIN 500 MG TABLET. PO SCH ×2 (08:24→17:32)
[2016-09-15] MEDS: FUROSEMIDE 40 MG TABLET PO SCH (08:24)
[2016-09-15] MEDS: DRONEDARONE HCL 400 MG TABLET PO SCH ×2 (08:25→20:14)
[2016-09-15] MEDS: MIRABEGRON 25 MG TAB.ER.24H PO SCH (08:25)
[2016-09-15] MEDS: COLLAGENASE 250 UNIT/GM TOPICAL OINTMENT 30GM TUBE. TP SCH (08:26)
[2016-09-15] MEDS: NYSTATIN 100,000 UNIT/GM TOPICAL CREAM 15GM TUBE. TP SCH ×3 (08:26→20:14)
[2016-09-15] MEDS: CLOTRIMAZOLE 1% TOPICAL CREAM 30GM TUBE. TP SCH ×2 (08:26→20:14)
[2016-09-15] MEDS: INSULIN ASPART 300 UNITS/3 ML INSULN.PEN SQ SCH ×3 (08:35→17:00)
[2016-09-15 18:57] VITALS: BP 119/65
[2016-09-15] MEDS: VANCOMYCIN 250 MG/5 ML ORAL SOLUTION. PO SCH (20:13)
[2016-09-15] MEDS: INSULIN DETEMIR 300 UNITS/3 ML INSULN.PEN. SQ SCH (20:19)
[2016-09-15] MEDS: ZOLPIDEM 5 MG TABLET. PO PRN (22:08)
[2016-09-16 04:35] VITALS: BP 135/76
[2016-09-16 06:19] LABS: BASO % 1 % (0-3); EOS # 0.2 x10^3/uL (0.0-0.7); EOS % 3 % (0-3); HEMOGLOBIN 11.2 g/dL (13.0-17.5); LYMPH # 1.4 x10^3/uL (1.0-4.8); LYMPH % 19 % (24-48); MEAN CORPUSCULAR HEMOGLOBIN 30 pg (25-35); MEAN CORPUSCULAR HGB CONC 33 g/dL (31-37); MEAN CORPUSCULAR VOLUME 90 fL (79-100); MONO # 1.1 x10^3/uL (0.0-1.1); MONO % 16 % (0-9); NEUT # 4.5 x10^3uL (1.8-7.7); NEUT % 62 % (31-73); PLATELET COUNT 99 x10^3/uL (140-400); RED BLOOD COUNT 3.79 x10^6/uL (4.30-5.70); RED CELL DISTRIBUTION WIDTH 14.8 % (11.5-14.5); WHITE BLOOD COUNT 7.3 x10^3/uL (4.0-11.0)
[2016-09-16 06:26] LABS: CALCIUM 8.2 mg/dL (8.5-10.1); CREATININE 0.8 mg/dL (0.7-1.3); GFR 96.7; POTASSIUM 3.6 mmol/L (3.5-5.1)
[2016-09-16] MEDS: INSULIN ASPART 300 UNITS/3 ML INSULN.PEN SQ SCH ×3 (07:51→16:42)
[2016-09-16] MEDS: LACTOBACILLUS ACIDOPH & BULGAR 1 TABLET. PO SCH (08:51)
[2016-09-16] MEDS: FUROSEMIDE 40 MG TABLET PO SCH (08:51)
[2016-09-16] MEDS: ASPIRIN 81 MG TAB.CHEW PO SCH (08:51)
[2016-09-16] MEDS: DRONEDARONE HCL 400 MG TABLET PO SCH ×2 (08:51→20:18)
[2016-09-16] MEDS: VANCOMYCIN 250 MG/5 ML ORAL SOLUTION. PO SCH ×4 (08:51→20:18)
[2016-09-16] MEDS: MULTIVITAMIN with MINERAL TABLET. PO SCH (08:51)
[2016-09-16] MEDS: METFORMIN 500 MG TABLET. PO SCH ×2 (08:52→16:57)
[2016-09-16] MEDS: MIRABEGRON 25 MG TAB.ER.24H PO SCH (08:52)
[2016-09-16] MEDS: CARVEDILOL 25 MG TABLET PO SCH ×2 (08:52→16:58)
[2016-09-16] MEDS: NYSTATIN 100,000 UNIT/GM TOPICAL CREAM 15GM TUBE. TP SCH ×3 (08:52→20:19)
[2016-09-16] MEDS: CLOTRIMAZOLE 1% TOPICAL CREAM 30GM TUBE. TP SCH ×2 (08:52→20:19)
[2016-09-16] MEDS: COLLAGENASE 250 UNIT/GM TOPICAL OINTMENT 30GM TUBE. TP SCH (08:53)
[2016-09-16 18:23] VITALS: BP 143/74
[2016-09-16] MEDS: INSULIN DETEMIR 300 UNITS/3 ML INSULN.PEN. SQ SCH (20:23)
[2016-09-16] MEDS: ZOLPIDEM 5 MG TABLET. PO PRN (21:52)
[2016-09-17 00:21] VITALS: BP 102/63
[2016-09-17 00:51] LABS: BASO # 0.1 x10^3/uL (0.0-0.2); BASO % 1 % (0-3); EOS # 0.2 x10^3/uL (0.0-0.7); EOS % 2 % (0-3); HEMATOCRIT 27.7 % (39.0-53.0); LYMPH # 1.8 x10^3/uL (1.0-4.8); LYMPH % 19 % (24-48); MEAN CORPUSCULAR HEMOGLOBIN 30 pg (25-35); MEAN CORPUSCULAR HGB CONC 32 g/dL (31-37); MEAN CORPUSCULAR VOLUME 92 fL (79-100); MONO # 1.3 x10^3/uL (0.0-1.1); MONO % 14 % (0-9); NEUT # 6.4 x10^3uL (1.8-7.7); NEUT % 65 % (31-73); PLATELET COUNT 148 x10^3/uL (140-400); RED BLOOD COUNT 3.02 x10^6/uL (4.30-5.70); RED CELL DISTRIBUTION WIDTH 15.1 % (11.5-14.5); WHITE BLOOD COUNT 9.8 x10^3/uL (4.0-11.0)
[2016-09-17 02:10] VITALS: BP 85/52
[2016-09-17 03:04] VITALS: BP 95/55
[2016-09-17 04:40] VITALS: BP 102/51
[2016-09-17] MEDS ORDERED: ONDANSETRON ODT 4 MG TAB.RAPDIS PO ONE (05:00)
[2016-09-17 05:57] LABS: BASO # 0.1 x10^3/uL (0.0-0.2); BASO % 1 % (0-3); EOS # 0.1 x10^3/uL (0.0-0.7); EOS % 1 % (0-3); HEMOGLOBIN 7.5 g/dL (13.0-17.5); LYMPH # 1.9 x10^3/uL (1.0-4.8); LYMPH % 19 % (24-48); MEAN CORPUSCULAR HEMOGLOBIN 30 pg (25-35); MEAN CORPUSCULAR HGB CONC 32 g/dL (31-37); MEAN CORPUSCULAR VOLUME 91 fL (79-100); MONO # 1.3 x10^3/uL (0.0-1.1); MONO % 13 % (0-9); NEUT # 6.5 x10^3uL (1.8-7.7); NEUT % 66 % (31-73); PLATELET COUNT 161 x10^3/uL (140-400); RED BLOOD COUNT 2.53 x10^6/uL (4.30-5.70); RED CELL DISTRIBUTION WIDTH 15.1 % (11.5-14.5); WHITE BLOOD COUNT 9.8 x10^3/uL (4.0-11.0)
[2016-09-17 06:07] VITALS: BP 128/53
[2016-09-17 06:15] LABS: % BANDS 5 % (0-9); % BASOS 1 % (0-3); % EOS 1 % (0-5); % LYMPHS 15 % (24-48); % MONOS 1 % (0-10); % SEGS 77 % (35-66); ALBUMIN/GLOBULIN RATIO 0.6 (1.0-1.7); CALCIUM 7.7 mg/dL (8.5-10.1); CREATININE 0.9 mg/dL (0.7-1.3); GFR 84.4; PLT ESTIMATE ADEQUATE (ADEQUATE); POTASSIUM 5.1 mmol/L (3.5-5.1); TOTAL BILIRUBIN 0.6 mg/dL (0.2-1.0); TOTAL PROTEIN 5.5 g/dL (6.4-8.2)
[2016-09-17] MEDS ORDERED: PANTOPRAZOLE 40 MG TABLET. PO SCH (07:00)
[2016-09-17] MEDS ORDERED: IV NORMAL SALINE 1,000ML 2,000 ML ONE (07:06)
[2016-09-17] MEDS ORDERED: IV NORMAL SALINE 1,000ML 1,000 ML IV SCH (07:15)
[2016-09-17 07:16] VITALS: BP_SYST 105; BP_SYST 99; BP_DIAS 52; BP_DIAS 58
[2016-09-17] MEDS ORDERED: SUCRALFATE 1 GM TABLET. PO SCH (07:30)
[2016-09-17 07:35] LABS: BASO # 0.1 x10^3/uL (0.0-0.2); BASO % 1 % (0-3); EOS # 0.1 x10^3/uL (0.0-0.7); EOS % 1 % (0-3); HEMATOCRIT 23.1 % (39.0-53.0); HEMOGLOBIN 7.5 g/dL (13.0-17.5); LYMPH # 2.7 x10^3/uL (1.0-4.8); LYMPH % 25 % (24-48); MEAN CORPUSCULAR HEMOGLOBIN 30 pg (25-35); MEAN CORPUSCULAR HGB CONC 33 g/dL (31-37); MEAN CORPUSCULAR VOLUME 91 fL (79-100); MONO # 1.3 x10^3/uL (0.0-1.1); MONO % 12 % (0-9); NEUT # 6.8 x10^3uL (1.8-7.7); NEUT % 62 % (31-73); PLATELET COUNT 183 x10^3/uL (140-400); RED BLOOD COUNT 2.53 x10^6/uL (4.30-5.70); RED CELL DISTRIBUTION WIDTH 15.1 % (11.5-14.5)
[2016-09-17 07:39] LABS: FECAL OB PT POSITIVE (NEG)
[2016-09-17] MEDS ORDERED: PANTOPRAZOLE IV PUSH 40 MG VIAL. IVP ONE (08:00)
== END 2016-09-17 08:00 | disposition short-term general hospital (02) | DRG 89 ==
LOC: 1 SOUTH 16:49
PROVIDERS: ADMIT Family Medicine; ATTEND Family Medicine
DX: S06.0X0A Concussion without loss of consciousness, initial encounter (principal); Z68.43 Body mass index [BMI] 50.0-59.9, adult; E44.0 Moderate protein-calorie malnutrition; I50.30 Unspecified diastolic (congestive) heart failure; S00.93XA Contusion of unspecified part of head, initial encounter; M17.9 Osteoarthritis of knee, unspecified; R53.1 Weakness; R62.7 Adult failure to thrive; W19.XXXA Unspecified fall, initial encounter; E11.9 Type 2 diabetes mellitus without complications; K21.9 Gastro-esophageal reflux disease without esophagitis; I10 Essential (primary) hypertension; Y93.89 Activity, other specified; Y92.89 Other specified places as the place of occurrence of the external cause; Y99.8 Other external cause status; E66.01 Morbid (severe) obesity due to excess calories; I48.91 Unspecified atrial fibrillation
CPT/HCPCS: 36415; 80048; 80053; 82274; 82947; 85007; 85027; 85610; J1815; Q0162; 97110; 97116; 97530; 97535; J7030

== ENCOUNTER 2016-09-23 15:45 | Inpatient (IN) | payer MEDICARE, BC ==
[~2016-09-23] VITALS: Ht 182.9 cm; Wt 178.3 kg
[2016-09-23 18:19] VITALS: BP 146/81
[2016-09-23 18:29] VITALS: BP 146/81
[2016-09-23 19:20] VITALS: BP 128/71
[2016-09-23] MEDS: NYSTATIN 100,000 UNIT/GM TOPICAL CREAM 15GM TUBE. TP SCH (21:52)
[2016-09-23] MEDS: VANCOMYCIN 125 MG/2.5 ML ORAL SOLUTION. PO SCH (21:52)
[2016-09-23] MEDS: DRONEDARONE HCL 400 MG TABLET PO SCH (21:52)
[2016-09-23] MEDS: INSULIN DETEMIR 300 UNITS/3 ML INSULN.PEN. SQ SCH (21:53)
[2016-09-24 05:10] VITALS: BP 131/68
[2016-09-24] MEDS: METFORMIN 500 MG TABLET. PO SCH ×2 (08:46→17:24)
[2016-09-24] MEDS: ASPIRIN 81 MG TAB.CHEW PO SCH (08:46)
[2016-09-24] MEDS: CARVEDILOL 25 MG TABLET PO SCH ×2 (08:46→17:24)
[2016-09-24] MEDS: VANCOMYCIN 125 MG/2.5 ML ORAL SOLUTION. PO SCH ×4 (08:47→20:00)
[2016-09-24] MEDS: DRONEDARONE HCL 400 MG TABLET PO SCH ×2 (08:48→20:00)
[2016-09-24] MEDS: COLLAGENASE 250 UNIT/GM TOPICAL OINTMENT 30GM TUBE. TP SCH (08:48)
[2016-09-24] MEDS: MIRABEGRON 25 MG TAB.ER.24H PO SCH (08:48)
[2016-09-24] MEDS: NYSTATIN 100,000 UNIT/GM TOPICAL CREAM 15GM TUBE. TP SCH ×3 (08:48→20:00)
[2016-09-24] MEDS: INSULIN ASPART 300 UNITS/3 ML INSULN.PEN SQ SCH ×3 (08:49→17:25)
[2016-09-24] MEDS ORDERED: DEXTROSE ORAL GEL 15 GM TUBE. PO PRN (12:15)
[2016-09-24 14:50] VITALS: BP 109/71
[2016-09-24 19:35] VITALS: BP 112/63
[2016-09-24] MEDS: INSULIN DETEMIR 300 UNITS/3 ML INSULN.PEN. SQ SCH (20:04)
[2016-09-25 05:30] VITALS: BP 131/67
[2016-09-25] MEDS: CARVEDILOL 25 MG TABLET PO SCH ×2 (08:14→17:10)
[2016-09-25] MEDS: METFORMIN 500 MG TABLET. PO SCH ×2 (08:14→17:00)
[2016-09-25] MEDS: DRONEDARONE HCL 400 MG TABLET PO SCH ×2 (08:15→20:34)
[2016-09-25] MEDS: MIRABEGRON 25 MG TAB.ER.24H PO SCH (08:16)
[2016-09-25] MEDS: COLLAGENASE 250 UNIT/GM TOPICAL OINTMENT 30GM TUBE. TP SCH (08:16)
[2016-09-25] MEDS: NYSTATIN 100,000 UNIT/GM TOPICAL CREAM 15GM TUBE. TP SCH ×3 (08:16→20:29)
[2016-09-25] MEDS: INSULIN ASPART 300 UNITS/3 ML INSULN.PEN SQ SCH ×3 (08:22→17:00)
[2016-09-25] MEDS: VANCOMYCIN 125 MG/2.5 ML ORAL SOLUTION. PO SCH ×4 (08:23→20:29)
[2016-09-25] MEDS: ASPIRIN 81 MG TAB.CHEW PO SCH (08:25)
[2016-09-25 19:51] VITALS: BP 120/65
[2016-09-25] MEDS: INSULIN DETEMIR 300 UNITS/3 ML INSULN.PEN. SQ SCH (20:32)
[2016-09-25] MEDS: ZOLPIDEM 5 MG TABLET. PO PRN (23:22)
[2016-09-26 05:21] VITALS: BP 111/66
[2016-09-26 06:48] LABS: ALBUMIN 2.6 g/dL (3.4-5.0); ALBUMIN/GLOBULIN RATIO 0.7 (1.0-1.7); CALCIUM 8.1 mg/dL (8.5-10.1); CREATININE 0.9 mg/dL (0.7-1.3); GFR 84.4; POTASSIUM 4.1 mmol/L (3.5-5.1); TOTAL BILIRUBIN 0.5 mg/dL (0.2-1.0); TOTAL PROTEIN 6.6 g/dL (6.4-8.2)
[2016-09-26 07:46] LABS: BASO # 0.1 x10^3/uL (0.0-0.2); BASO % 1 % (0-3); EOS # 0.1 x10^3/uL (0.0-0.7); EOS % 2 % (0-3); HEMATOCRIT 22.4 % (39.0-53.0); HEMOGLOBIN 7.3 g/dL (13.0-17.5); LYMPH # 1.3 x10^3/uL (1.0-4.8); LYMPH % 29 % (24-48); MEAN CORPUSCULAR HEMOGLOBIN 29 pg (25-35); MEAN CORPUSCULAR HGB CONC 33 g/dL (31-37); MEAN CORPUSCULAR VOLUME 90 fL (79-100); MONO # 0.7 x10^3/uL (0.0-1.1); MONO % 16 % (0-9); NEUT # 2.3 x10^3uL (1.8-7.7); NEUT % 52 % (31-73); PLATELET COUNT 150 x10^3/uL (140-400); RED BLOOD COUNT 2.49 x10^6/uL (4.30-5.70); RED CELL DISTRIBUTION WIDTH 15.3 % (11.5-14.5); WHITE BLOOD COUNT 4.5 x10^3/uL (4.0-11.0)
[2016-09-26] MEDS: INSULIN ASPART 300 UNITS/3 ML INSULN.PEN SQ SCH ×5 (08:00→21:00)
[2016-09-26] MEDS: CARVEDILOL 25 MG TABLET PO SCH ×2 (08:23→19:33)
[2016-09-26] MEDS: MIRABEGRON 25 MG TAB.ER.24H PO SCH (08:24)
[2016-09-26] MEDS: ASPIRIN 81 MG TAB.CHEW PO SCH (08:24)
[2016-09-26] MEDS: DRONEDARONE HCL 400 MG TABLET PO SCH ×2 (08:24→22:15)
[2016-09-26] MEDS: METFORMIN 500 MG TABLET. PO SCH ×2 (08:24→17:00)
[2016-09-26] MEDS: VANCOMYCIN 125 MG/2.5 ML ORAL SOLUTION. PO SCH ×4 (08:26→22:15)
[2016-09-26] MEDS: COLLAGENASE 250 UNIT/GM TOPICAL OINTMENT 30GM TUBE. TP SCH (09:00)
[2016-09-26] MEDS ORDERED: DEXTROSE 50% 25 GM / 50ML DISP.SYRIN. IV PRN (12:00)
[2016-09-26] MEDS: NYSTATIN 100,000 UNIT/GM TOPICAL CREAM 15GM TUBE. TP SCH ×3 (12:16→22:16)
[2016-09-26 15:18] VITALS: BP 100/54
[2016-09-26 19:30] VITALS: BP 121/57
[2016-09-26] MEDS: ZOLPIDEM 5 MG TABLET. PO PRN (22:20)
[2016-09-26] MEDS: INSULIN DETEMIR 300 UNITS/3 ML INSULN.PEN. SQ SCH (22:20)
[2016-09-27] MEDS: INSULIN ASPART 300 UNITS/3 ML INSULN.PEN SQ SCH ×4 (07:30→12:00)
[2016-09-27] MEDS: NYSTATIN 100,000 UNIT/GM TOPICAL CREAM 15GM TUBE. TP SCH (07:52)
[2016-09-27] MEDS: COLLAGENASE 250 UNIT/GM TOPICAL OINTMENT 30GM TUBE. TP SCH (07:52)
[2016-09-27] MEDS: VANCOMYCIN 125 MG/2.5 ML ORAL SOLUTION. PO SCH (07:53)
[2016-09-27] MEDS: MIRABEGRON 25 MG TAB.ER.24H PO SCH (07:53)
[2016-09-27] MEDS: METFORMIN 500 MG TABLET. PO SCH (07:53)
[2016-09-27] MEDS: DRONEDARONE HCL 400 MG TABLET PO SCH (07:54)
[2016-09-27] MEDS: CARVEDILOL 25 MG TABLET PO SCH (07:54)
[2016-09-27] MEDS: ASPIRIN 81 MG TAB.CHEW PO SCH (08:01)
[2016-09-27 08:12] VITALS: BP 131/76
[2016-09-27 10:59] VITALS: BP 115/69
[2016-09-27 11:46] LABS: BASO % 1 % (0-3); EOS # 0.1 x10^3/uL (0.0-0.7); EOS % 2 % (0-3); HEMATOCRIT 21.3 % (39.0-53.0); LYMPH # 1.3 x10^3/uL (1.0-4.8); LYMPH % 31 % (24-48); MEAN CORPUSCULAR HEMOGLOBIN 28 pg (25-35); MEAN CORPUSCULAR HGB CONC 31 g/dL (31-37); MEAN CORPUSCULAR VOLUME 90 fL (79-100); MONO # 0.9 x10^3/uL (0.0-1.1); MONO % 23 % (0-9); NEUT # 1.8 x10^3uL (1.8-7.7); NEUT % 44 % (31-73); PLATELET COUNT 117 x10^3/uL (140-400); RED BLOOD COUNT 2.36 x10^6/uL (4.30-5.70); RED CELL DISTRIBUTION WIDTH 15.7 % (11.5-14.5); WHITE BLOOD COUNT 4.1 x10^3/uL (4.0-11.0)
[2016-09-27 11:47] LABS: HEMOGLOBIN 6.7 g/dL (13.0-17.5)
[2016-09-27] MEDS ORDERED: CARV25TA PO (11:57)
[2016-09-27] MEDS ORDERED: ZOLP5TAB PO (11:57)
[2016-09-27] MEDS ORDERED: VANC125S PO (12:02)
== END 2016-09-27 12:12 | disposition short-term general hospital (02) | DRG 378 ==
LOC: 1 SOUTH 18:12
PROVIDERS: ADMIT Family Medicine; ATTEND Family Medicine
PROC: 30233N1 Transfusion of Nonautologous Red Blood Cells into Peripheral Vein, Percutaneous Approach (ICD-10-PCS; principal; 2016-09-23)
DX: K92.2 Gastrointestinal hemorrhage, unspecified (principal); Z68.43 Body mass index [BMI] 50.0-59.9, adult; I48.2 Chronic atrial fibrillation; E11.9 Type 2 diabetes mellitus without complications; D64.9 Anemia, unspecified; E66.01 Morbid (severe) obesity due to excess calories; D69.6 Thrombocytopenia, unspecified; R31.9 Hematuria, unspecified; L89.90 Pressure ulcer of unspecified site, unspecified stage; Z90.49 Acquired absence of other specified parts of digestive tract; Z98.52 Vasectomy status; Z86.14 Personal history of Methicillin resistant Staphylococcus aureus infection; Z88.8 Allergy status to other drugs, medicaments and biological substances; Z80.9 Family history of malignant neoplasm, unspecified
CPT/HCPCS: 36415; 80053; 82947; 85027; J0775; J1815; 97110; 97530; 97535

== ENCOUNTER 2016-09-27 12:17 | Inpatient (IN) | payer MEDICARE, BC ==
[~2016-09-27] VITALS: Ht 182.9 cm; Wt 178.4 kg
[2016-09-27] VITALS (13 sets, daily range): BP systolic 115–172; BP diastolic 69–84
[~2016-09-27 12:17] MED LIST changes: +CARV25TA PO; +VANC125S PO; +ZOLP5TAB PO
[2016-09-27] MEDS: NYSTATIN 100,000 UNIT/GM TOPICAL CREAM 15GM TUBE. TP SCH ×2 (14:00→20:57)
[2016-09-27 14:08] LABS: FECAL OB PT NEGATIVE (NEG)
[2016-09-27] MEDS ORDERED: IV NORMAL SALINE 250ML 250 ML ONE (14:55)
[2016-09-27] MEDS ORDERED: CONTRAST GIVEN MC PRN (15:45)
[2016-09-27] MEDS ORDERED: IOHEXOL 300 MG/ML 75 ML VIAL. IV ONE (15:45)
[2016-09-27] MEDS ORDERED: IOHEXOL 240 MG/ML 50ML VIAL. PO ONE (15:45)
[2016-09-27] MEDS: CARVEDILOL 25 MG TABLET PO SCH (16:05)
[2016-09-27] MEDS: SUCRALFATE 1 GM TABLET. PO SCH ×2 (16:05→20:48)
[2016-09-27] MEDS: VANCOMYCIN 125 MG/2.5 ML ORAL SOLUTION. PO SCH ×2 (16:06→20:48)
--- NOTE | 2016-09-27 16:23 | RAD ---
EXAM: Abdomen and pelvis CT with intravenous contrast. HISTORY: Right lower quadrant pain. TECHNIQUE: Computed tomographic images of the abdomen and pelvis were obtained following the administration of 75 cc Omnipaque 300 intravenous contrast. Multiplanar reformatting was performed. COMPARISON: None. FINDINGS: Evaluation of the lower thorax demonstrates a 3 mm nodular opacity within the right middle lobe, possibly an intrafissural lymph node. There is no infiltrate or effusion. There is calcification of the aortic valve. There is coronary artery atherosclerosis. There is a nodular liver contour possibly due to a component of cirrhosis. The gallbladder, pancreas, spleen and adrenal glands are unremarkable. There is a small calcified splenic artery aneurysm. There are multiple large nonobstructing renal stones. The largest stone on the left measures 1.9 cm within the lower pole and the largest stone on the right measures 2.8 cm within the upper pole. There is a 1.6 cm simple appearing right renal cyst. There is a 1.6 cm hypodense lesion within the anterior mid zone of the left kidney, possibly a complex cyst. There is also a suspected tiny cyst within the upper pole the left kidney. There is renal cortical lobulation likely due to scarring. The bladder is unremarkable. No abnormally thickened or dilated loop of bowel is seen. No obstruction is seen. There is no evidence of appendicitis. There are prominent retroperitoneal and bilateral iliac chain lymph nodes. There is curvilinear increased density within the bilateral lower quadrants, possibly due to scarring or partially calcified lymph nodes with fatty jolene. There is degenerative change within the lumbar spine. There is grade 1 anterolisthesis at multiple levels and lumbar scoliosis. This results in foraminal and central canal stenosis at multiple levels. No suspicious osseous lesion is seen. IMPRESSION: 1. Large nonobstructing renal stones. There is renal cortical lobulation likely due to scarring. There are also small hypodense lesions within both kidneys which likely represents cysts, one of which on within the left kidney measures 1.6 cm and appears to be complex. Renal sonography can be performed to confirm benignity. 2. Multiple prominent retroperitoneal and iliac chain lymph nodes, of uncertain etiology. These may be reactive. However, the possibility of a neoplastic etiology is not excluded. 3. No acute findings correlate with right lower quadrant pain. 4. 3 mm nodular opacity within the right midlung, likely a lymph node along the pleural fissure. Follow-up according to Fleischner Society criteria can be performed to confirm stability if clinically indicated. 5. Slight hepatic surface nodularity possibly due to a component of cirrhosis. Correlate with liver enzymes laboratory values. PQRS Compliance Statement: One or more of the following individualized dose reduction techniques were utilized for this examination: 1. Automated exposure control 2. Adjustment of the mA and/or kV according to patient size 3. Use of iterative reconstruction technique
[2016-09-27] MEDS: INSULIN ASPART 300 UNITS/3 ML INSULN.PEN SQ SCH (16:49)
[2016-09-27] MEDS ORDERED: METFORMIN 500 MG TABLET. PO SCH (17:00)
[2016-09-27 18:41] LABS: BILIRUBIN,URINE NEG (NEG); CLARITY,URINE HAZY; COLOR,URINE YELLOW; GLUCOSE,URINE NEG (NEG)
[2016-09-27 18:42] LABS: BACTERIA,URINE FEW /HPF (0-FEW); NITRITE,URINE NEG (NEG); SQUAMOUS EPITHELIAL CELL,UR OCC /LPF; UROBILINOGEN,URINE 0.2 mg/dL (0.2 mg/dL)
[2016-09-27] MEDS: ZOLPIDEM 5 MG TABLET. PO PRN (20:49)
[2016-09-27] MEDS: DRONEDARONE HCL 400 MG TABLET PO SCH (20:53)
[2016-09-27] MEDS: INSULIN DETEMIR 300 UNITS/3 ML INSULN.PEN. SQ SCH (20:57)
[2016-09-27 22:19] LABS: HEMATOCRIT 26.7 % (39.0-53.0); HEMOGLOBIN 8.4 g/dL (13.0-17.5); RED BLOOD COUNT 2.9 x10^6/uL (4.30-5.70); RED CELL DISTRIBUTION WIDTH 16.5 % (11.5-14.5); WHITE BLOOD COUNT 4.3 x10^3/uL (4.0-11.0)
--- NOTE | 2016-09-28 00:51 | HP ---
ADMIT DATE: 09/27/2016 HISTORY OF PRESENT ILLNESS: A 65-year-old gentleman who is on swing bed. He has had come back from [place]. The patient was noted to have low hemoglobin. His H and H had dropped quite significantly and it is down into the 6 range. As a result of this, the patient was admitted to the hospital for blood transfusion. The patient had no blood in his stool. He has had problems with this before. He has been evaluated. As noted, he had been down at [place] for a similar situation. Apparently, they had not done colonoscopy or a EGD. Previous studies done down at [facility] not actually located any particular source of the bleeding. At any case, the patient was admitted for his acute anemia as well as blood transfusion of 2 units of packed RBCs. PAST MEDICAL HISTORY: The patient has a history of chronic atrial fibrillation, diabetes, severe morbid obesity, arterial disease of lower extremities, ITP, TTP, and presumed diastolic heart failure amongst other problems. The patient also has had appendectomy, tonsillectomy, and cellulitis of his legs being swollen several times, vasectomy, reproductive disorders, obesity as noted, and pressure ulcers. He has also had a history of MRSA. ALLERGIES: THE PATIENT HAS AN ALLERGY TO ANTIFUNGAL AND IMIDAZOLE. FAMILY HISTORY: Sister has hemolytic uremic syndrome and mother and father with cancer as well as a sister. SOCIAL HISTORY: The patient denies smoking, alcohol, or drug use. MEDICATIONS: Include aspirin 81 mg, Coreg 25 b.i.d., Santyl, Multaq 400 mg b.i.d., insulin, NovoLog, as well as Basaglar, metformin, ____, nystatin, vancomycin p.o. for possible C. difficile, and Ambien, although he has not had any diarrhea here. REVIEW OF SYSTEMS: The patient denies any headaches, vision change, blurred vision, or double vision. Denies any melena, hematochezia, or hematemesis. His daughter denies any diarrhea presently. PHYSICAL EXAMINATION: GENERAL: He is a very pleasant gentleman, looking very pale. He has morbid obesity. VITAL SIGNS: Blood pressure 140/80, respiratory rate 20, pulse 74, and afebrile. HEENT: The patient's head was atraumatic and normocephalic. Eyes, PERRLA without jaundice. Mouth and throat were normal. NECK: Supple without JVD or carotid bruits. No thyromegaly. LUNGS: Diminished throughout. Poor movement of air, but clear. CARDIOVASCULAR: Regular rate and rhythm. ABDOMEN: Soft, very protuberant, and nontender except in the lower abdominal area. There is definite guarding, but no rebounding. Stool Hemoccult negative. RECTAL: Normal male genitalia. EXTREMITIES: No clubbing, cyanosis, or edema. NEUROLOGIC: The patient was alert and oriented x 3. The patient's hemoglobin as noted had dropped down into the 6.4 range. As a result of this, the patient was admitted to the hospital for further evaluation and treatment. IMPRESSION: Probable acute gastrointestinal bleeding, thrombocytopenia, history of thrombotic thrombocytopenic purpura, severe morbid obesity, anemia, probable gastrointestinal bleeding, type 2 diabetes, and hematuria. PLAN: The patient will be admitted for blood transfusion and possible bloods bleeding scan. He probably will need a GI workup such as a TV endoscopy since the patient has had EGDs and colonoscopies find out any obvious source of his bleeding problem. CT scan of his abdomen and pelvis because he did have the abdominal pain did not demonstrate any particular obvious problems that might be associated with the acute loss of blood. BERNA VU MD DR: ASHU/slim JOB#: [id number] / [id number]
[2016-09-28 04:59] VITALS: BP 119/58
[2016-09-28 06:49] LABS: BASO % 1 % (0-3); EOS # 0.1 x10^3/uL (0.0-0.7); EOS % 2 % (0-3); HEMATOCRIT 26.6 % (39.0-53.0); HEMOGLOBIN 8.7 g/dL (13.0-17.5); LYMPH # 1.5 x10^3/uL (1.0-4.8); LYMPH % 29 % (24-48); MEAN CORPUSCULAR HEMOGLOBIN 29 pg (25-35); MEAN CORPUSCULAR HGB CONC 33 g/dL (31-37); MEAN CORPUSCULAR VOLUME 88 fL (79-100); MONO % 19 % (0-9); NEUT # 2.6 x10^3uL (1.8-7.7); NEUT % 49 % (31-73); PLATELET COUNT 150 x10^3/uL (140-400); RED BLOOD COUNT 3.02 x10^6/uL (4.30-5.70); RED CELL DISTRIBUTION WIDTH 16.2 % (11.5-14.5); WHITE BLOOD COUNT 5.3 x10^3/uL (4.0-11.0)
[2016-09-28 07:09] LABS: ALBUMIN 2.8 g/dL (3.4-5.0); ALBUMIN/GLOBULIN RATIO 0.7 (1.0-1.7); CALCIUM 8.4 mg/dL (8.5-10.1); CREATININE 0.9 mg/dL (0.7-1.3); GFR 84.4; POTASSIUM 4.2 mmol/L (3.5-5.1); TOTAL BILIRUBIN 0.8 mg/dL (0.2-1.0); TOTAL PROTEIN 7.1 g/dL (6.4-8.2)
[2016-09-28] MEDS: COLLAGENASE 250 UNIT/GM TOPICAL OINTMENT 30GM TUBE. TP SCH (08:34)
[2016-09-28] MEDS: VANCOMYCIN 125 MG/2.5 ML ORAL SOLUTION. PO SCH ×4 (08:34→20:31)
[2016-09-28] MEDS: NYSTATIN 100,000 UNIT/GM TOPICAL CREAM 15GM TUBE. TP SCH ×3 (08:35→20:36)
[2016-09-28] MEDS: MIRABEGRON 25 MG TAB.ER.24H PO SCH (08:36)
[2016-09-28] MEDS: PANTOPRAZOLE 40 MG TABLET. PO SCH (08:36)
[2016-09-28] MEDS: DRONEDARONE HCL 400 MG TABLET PO SCH ×2 (08:36→20:31)
[2016-09-28] MEDS: SUCRALFATE 1 GM TABLET. PO SCH ×4 (08:37→20:31)
[2016-09-28] MEDS: CARVEDILOL 25 MG TABLET PO SCH ×2 (08:37→17:02)
[2016-09-28] MEDS: INSULIN ASPART 300 UNITS/3 ML INSULN.PEN SQ SCH ×3 (08:45→17:07)
[2016-09-28 10:20] VITALS: BP 119/74
[2016-09-28 13:07] VITALS: BP 119/74
[2016-09-28 14:53] VITALS: BP 149/72
[2016-09-28 16:48] LABS: IRON,SERUM 29 ug/dL (65-175)
[2016-09-28 18:14] VITALS: BP 109/68
[2016-09-28] MEDS: ZOLPIDEM 5 MG TABLET. PO PRN (20:31)
[2016-09-28] MEDS: INSULIN DETEMIR 300 UNITS/3 ML INSULN.PEN. SQ SCH (20:34)
--- NOTE | 2016-09-29 02:33 | PN ---
DATE: 09/28/2016 SUBJECTIVE: A 65-year-old gentleman in with anemia of unspecified etiology, possible gastrointestinal bleed, although stools have been Hemoccult negative. The patient is resting fairly comfortably, says he feels a little better received 2 units packed RBCs. His hemoglobin did come up today to the 8.7 range, basically stable at least hematocrit 26. OBJECTIVE: GENERAL: The patient is alert and oriented. LUNGS: Diminished with some crackles noted. CARDIOVASCULAR: Regular sinus rhythm, 3-4/6 systolic ejection murmur. ABDOMEN: Massively protuberant. EXTREMITIES: No clubbing, cyanosis. Trace edema noted. NEUROLOGIC: Much better spirits stay after receiving his 2 units packed RBCs. IMPRESSION: Acute probable GI bleed. He has been evaluated for this several times in the past. No one is able to identifying the situation where he has been losing the blood. He is not thrombocytopenic he has had history of TTP in the past. PLAN: We will continue to monitor the patient hopefully ready for discharge in the a.m. BERNA VU MD DR: ASHU/slim JOB#: [id number] / [id number]
[2016-09-29] MEDS ORDERED: ACETAMINOPHEN 500 MG TABLET PO PRN (03:30)
[2016-09-29 05:36] VITALS: BP 142/64
[2016-09-29] MEDS: PANTOPRAZOLE 40 MG TABLET. PO SCH (06:18)
[2016-09-29] MEDS: SUCRALFATE 1 GM TABLET. PO SCH (06:18)
[2016-09-29] MEDS ORDERED: METFORMIN 500 MG TABLET. PO SCH (08:00)
[2016-09-29] MEDS: COLLAGENASE 250 UNIT/GM TOPICAL OINTMENT 30GM TUBE. TP SCH (08:43)
[2016-09-29] MEDS: NYSTATIN 100,000 UNIT/GM TOPICAL CREAM 15GM TUBE. TP SCH (08:43)
[2016-09-29] MEDS: CARVEDILOL 25 MG TABLET PO SCH (08:44)
[2016-09-29 08:45] VITALS: BP 142/64
[2016-09-29] MEDS: MIRABEGRON 25 MG TAB.ER.24H PO SCH (08:45)
[2016-09-29] MEDS: DRONEDARONE HCL 400 MG TABLET PO SCH (08:45)
[2016-09-29] MEDS: VANCOMYCIN 125 MG/2.5 ML ORAL SOLUTION. PO SCH (08:49)
[2016-09-29] MEDS: INSULIN ASPART 300 UNITS/3 ML INSULN.PEN SQ SCH (08:52)
[2016-09-29] MEDS ORDERED: SUCR1TAB29 PO (10:05)
[2016-09-29] MEDS ORDERED: ACET500T55 PO (10:05)
[2016-09-29] MEDS ORDERED: PANT40TA5 PO (10:05)
== END 2016-09-29 11:15 | disposition home health service (06) | DRG 378 ==
LOC: 1 SOUTH 12:17
PROVIDERS: ADMIT Family Medicine; ATTEND Family Medicine
PROC: 30233N1 Transfusion of Nonautologous Red Blood Cells into Peripheral Vein, Percutaneous Approach (ICD-10-PCS; principal; 2016-09-27)
DX: K92.2 Gastrointestinal hemorrhage, unspecified (principal); Z68.43 Body mass index [BMI] 50.0-59.9, adult; I50.32 Chronic diastolic (congestive) heart failure; D64.9 Anemia, unspecified; E11.9 Type 2 diabetes mellitus without complications; L89.90 Pressure ulcer of unspecified site, unspecified stage; I48.2 Chronic atrial fibrillation; R31.9 Hematuria, unspecified; E66.01 Morbid (severe) obesity due to excess calories; Z80.9 Family history of malignant neoplasm, unspecified; Z86.14 Personal history of Methicillin resistant Staphylococcus aureus infection; Z88.8 Allergy status to other drugs, medicaments and biological substances
CPT/HCPCS: 36415; 74177; 80053; 81001; 82274; 82947; 83540; 83550; 85027; 85610; 86850; 86900; 86901; 86920; J7050; P9016; Q9966; Q9967; 97110

== ENCOUNTER 2016-10-12 12:31 | Observation (INO) | payer MEDICARE, BC ==
[~2016-10-12] VITALS: Ht 182.9 cm; Wt 178.3 kg
[2016-10-12] VITALS (13 sets, daily range): BP systolic 109–153; BP diastolic 56–78
[~2016-10-12 12:31] MED LIST changes: +ACET500T55 PO; +PANT40TA5 PO; +SUCR1TAB29 PO
[2016-10-12 14:05] LABS: BASO % 1 % (0-3); EOS # 0.2 x10^3/uL (0.0-0.7); EOS % 3 % (0-3); HEMATOCRIT 23.3 % (39.0-53.0); HEMOGLOBIN 7.6 g/dL (13.0-17.5); LYMPH # 0.9 x10^3/uL (1.0-4.8); LYMPH % 17 % (24-48); MEAN CORPUSCULAR HEMOGLOBIN 27 pg (25-35); MEAN CORPUSCULAR HGB CONC 33 g/dL (31-37); MEAN CORPUSCULAR VOLUME 84 fL (79-100); MONO % 17 % (0-9); NEUT # 3.5 x10^3uL (1.8-7.7); NEUT % 62 % (31-73); PLATELET COUNT 135 x10^3/uL (140-400); RED BLOOD COUNT 2.77 x10^6/uL (4.30-5.70); RED CELL DISTRIBUTION WIDTH 17.8 % (11.5-14.5); WHITE BLOOD COUNT 5.6 x10^3/uL (4.0-11.0)
[2016-10-12 14:17] LABS: ALBUMIN 2.7 g/dL (3.4-5.0); ALBUMIN/GLOBULIN RATIO 0.6 (1.0-1.7); CALCIUM 8.1 mg/dL (8.5-10.1); CREATININE 0.9 mg/dL (0.7-1.3); GFR 84.4; POTASSIUM 4.2 mmol/L (3.5-5.1); TOTAL BILIRUBIN 0.4 mg/dL (0.2-1.0); TOTAL PROTEIN 7.2 g/dL (6.4-8.2)
--- NOTE | 2016-10-12 14:30 | RAD ---
Indication shortness of breath. PA and lateral views of the chest were obtained and are compared to an exam one month ago. There is unchanged mild cardiomegaly. There is perhaps mild pulmonary vascular congestion. Gross congestive heart failure is not seen. A consolidated pneumonia is not present. There is no pleural fluid or pneumothorax. IMPRESSION: Mild cardiomegaly, stable. Suspect mild pulmonary vascular congestion. No focal consolidated pneumonia is seen.
[2016-10-12] MEDS ORDERED: ACETAMINOPHEN 500 MG TABLET PO PRN (15:00)
[2016-10-12] MEDS ORDERED: ZOLPIDEM 5 MG TABLET. PO PRN (15:00)
[2016-10-12] MEDS ORDERED: IV NORMAL SALINE 250ML 250 ML ONE ×2 (16:01→20:05)
[2016-10-12] MEDS: SUCRALFATE 1 GM TABLET. PO SCH ×2 (16:16→21:20)
[2016-10-12] MEDS: INSULIN ASPART 300 UNITS/3 ML INSULN.PEN SQ SCH (17:15)
[2016-10-12] MEDS: METFORMIN 500 MG TABLET. PO SCH (17:16)
[2016-10-12 19:16] LABS: CLARITY,URINE CLEAR; COLOR,URINE YELLOW
[2016-10-12 19:17] LABS: BACTERIA,URINE 0 /HPF (0-FEW); BILIRUBIN,URINE NEG (NEG); GLUCOSE,URINE NEG (NEG); NITRITE,URINE NEG (NEG); SQUAMOUS EPITHELIAL CELL,UR FEW /LPF; UROBILINOGEN,URINE 0.2 mg/dL (0.2 mg/dL)
[2016-10-12] MEDS ORDERED: INSULIN DETEMIR 300 UNITS/3 ML INSULN.PEN. SQ SCH (21:00)
[2016-10-12] MEDS: DRONEDARONE HCL 400 MG TABLET PO SCH (21:19)
[2016-10-12] MEDS: NYSTATIN 100,000 UNIT/GM TOPICAL CREAM 15GM TUBE. TP SCH (21:20)
[2016-10-12] MEDS: CARVEDILOL 25 MG TABLET PO SCH (21:20)
[2016-10-13 00:15] VITALS: BP 118/69
[2016-10-13 01:15] VITALS: BP 131/67
[2016-10-13 05:03] VITALS: BP 145/73
[2016-10-13 06:16] LABS: BASO # 0.1 x10^3/uL (0.0-0.2); BASO % 1 % (0-3); EOS # 0.2 x10^3/uL (0.0-0.7); EOS % 4 % (0-3); HEMATOCRIT 26.1 % (39.0-53.0); HEMOGLOBIN 8.6 g/dL (13.0-17.5); LYMPH # 1.2 x10^3/uL (1.0-4.8); LYMPH % 22 % (24-48); MEAN CORPUSCULAR HEMOGLOBIN 28 pg (25-35); MEAN CORPUSCULAR HGB CONC 33 g/dL (31-37); MEAN CORPUSCULAR VOLUME 84 fL (79-100); MONO # 1.1 x10^3/uL (0.0-1.1); MONO % 21 % (0-9); NEUT # 2.9 x10^3uL (1.8-7.7); NEUT % 52 % (31-73); PLATELET COUNT 144 x10^3/uL (140-400); RED BLOOD COUNT 3.12 x10^6/uL (4.30-5.70); RED CELL DISTRIBUTION WIDTH 17.1 % (11.5-14.5); WHITE BLOOD COUNT 5.5 x10^3/uL (4.0-11.0)
[2016-10-13 06:26] LABS: CALCIUM 7.9 mg/dL (8.5-10.1); CREATININE 0.8 mg/dL (0.7-1.3); GFR 96.7; POTASSIUM 3.9 mmol/L (3.5-5.1)
[2016-10-13] MEDS ORDERED: PANTOPRAZOLE 40 MG TABLET. PO SCH (07:30)
[2016-10-13] MEDS: METFORMIN 500 MG TABLET. PO SCH (08:07)
[2016-10-13] MEDS: SUCRALFATE 1 GM TABLET. PO SCH ×2 (08:08→11:30)
[2016-10-13] MEDS: CARVEDILOL 25 MG TABLET PO SCH (08:08)
[2016-10-13] MEDS: DRONEDARONE HCL 400 MG TABLET PO SCH (08:08)
[2016-10-13] MEDS: NYSTATIN 100,000 UNIT/GM TOPICAL CREAM 15GM TUBE. TP SCH (08:09)
[2016-10-13] MEDS: INSULIN ASPART 300 UNITS/3 ML INSULN.PEN SQ SCH ×2 (08:13→12:00)
[2016-10-13] MEDS ORDERED: COLLAGENASE 250 UNIT/GM TOPICAL OINTMENT 30GM TUBE. TP SCH (09:00)
[2016-10-13] MEDS ORDERED: MIRABEGRON 25 MG TAB.ER.24H PO SCH (09:00)
[2016-10-13] MEDS ORDERED: FURO-68 PO (10:03)
[2016-10-13 11:08] VITALS: BP 125/57
--- NOTE | 2016-10-13 11:16 | DS ---
DATE OF DISCHARGE: 10/13/2016 HOSPITAL COURSE: The patient came in feeling weak and tired and rundown. The patient has a history of a GI bleed. Hemoglobin was down to low 7s, hematocrit of 23. The patient with increased shortness of breath when he was walking. He was brought in, given 2 units packed RBCs, felt much better and was discharged to home. He will be followed up as an outpatient to make further evaluation. See MRAD. Decreased activity. Low-sodium diabetic diet. He was started on Lasix and low sodium diet. BERNA VU MD DR: ASHU/slim JOB#: [id number] / [id number]
[2016-10-13 15:38] LABS: IRON,SERUM 19 ug/dL (65-175)
--- NOTE | 2016-10-13 15:48 | EKG ---
[address] [address] Test Date: 2016-10-13 Test Time: 13:54:33 Pat Name: RICCI LEVINE Department: Room: 119 A Gender: M Cnc Specialist: SKYLAR : 1950 Requested By: BERNA UV Order Number: [id number] Reading MD: Denis Person Measurements Intervals [place] Rate: 63 P: 29 SC: 150 QRS: 58 QRSD: 96 T: 57 QT: 386 QTc: 398 Interpretive Statements SINUS RHYTHM Electronically Signed On 10-20-2016 14:13:20 CDT by Denis Person
== END 2016-10-13 13:00 | disposition home health service (06) ==
LOC: 1 SOUTH 13:27 → OBSVTOIN 13:27 → UNDOADMOB 13:27 → INTOOBSV 13:27 → OBSVTOIN 13:34 → INTOOBSV 13:34 → 1 SOUTH 20:30 → UNDOADMOB 20:30
PROVIDERS: ADMIT Family Medicine; ATTEND Family Medicine
DX: D64.89 Other specified anemias (principal); R06.02 Shortness of breath; R53.1 Weakness; E11.9 Type 2 diabetes mellitus without complications; E78.00 Pure hypercholesterolemia, unspecified; Z83.3 Family history of diabetes mellitus; Z80.1 Family history of malignant neoplasm of trachea, bronchus and lung
CPT/HCPCS: 36415; 36430; 71020; 80048; 80053; 81001; 82947; 83540; 83550; 83880; 84484; 85027; 85379; 86850; 86900; 86901; 86920; 87086; 93005; 96372; G0378; G0379; J0775; J1815; J7050; P9016

== ENCOUNTER 2016-12-15 13:05 | Inpatient (IN) | payer MEDICARE, BC ==
[~2016-12-15] VITALS: Ht 182.9 cm; Wt 193.2 kg
[~2016-12-15 13:05] MED LIST changes: +ASPI-630 PO; -ASPI81TA2 PO; +CLON-276 PO; -CLON0.2T PO; +FURO-68 PO; -SUCR1TAB29 PO; +SUCR1TAB35 PO
[2016-12-15 16:15] VITALS: BP 161/73
[2016-12-15] MEDS ORDERED: CARVEDILOL 25 MG TABLET PO SCH (17:00)
[2016-12-15 17:10] LABS: BGAS PH 7.45 (7.35-7.46)
[2016-12-15 17:19] LABS: BASO % 1 % (0-3); EOS # 0.1 x10^3/uL (0.0-0.7); EOS % 2 % (0-3); HEMATOCRIT 28.8 % (39.0-53.0); HEMOGLOBIN 9.2 g/dL (13.0-17.5); LYMPH % 21 % (24-48); MEAN CORPUSCULAR HEMOGLOBIN 25 pg (25-35); MEAN CORPUSCULAR HGB CONC 32 g/dL (31-37); MEAN CORPUSCULAR VOLUME 77 fL (79-100); MONO # 0.9 x10^3/uL (0.0-1.1); MONO % 18 % (0-9); NEUT # 2.8 x10^3uL (1.8-7.7); NEUT % 58 % (31-73); PLATELET COUNT 93 x10^3/uL (140-400); RED BLOOD COUNT 3.73 x10^6/uL (4.30-5.70); WHITE BLOOD COUNT 4.8 x10^3/uL (4.0-11.0)
[2016-12-15 17:30] LABS: ALBUMIN 2.6 g/dL (3.4-5.0); ALBUMIN/GLOBULIN RATIO 0.5 (1.0-1.7); CREATININE 0.9 mg/dL (0.7-1.3); GFR 84.2; POTASSIUM 4.1 mmol/L (3.5-5.1); TOTAL BILIRUBIN 0.4 mg/dL (0.2-1.0); TOTAL PROTEIN 7.6 g/dL (6.4-8.2)
[2016-12-15] MEDS ORDERED: ACETAMINOPHEN 500 MG TABLET PO PRN (17:30)
[2016-12-15] MEDS ORDERED: INSULIN ASPART 300 UNITS/3 ML INSULN.PEN SQ SCH (17:30)
[2016-12-15] MEDS ORDERED: ZOLPIDEM 5 MG TABLET. PO PRN (17:30)
[2016-12-15] MEDS ORDERED: ASPI-630 PO (18:22)
[2016-12-15] MEDS ORDERED: ASCO10002 PO (18:23)
[2016-12-15] MEDS ORDERED: MULT-208 PO (18:23)
[2016-12-15 18:25] LABS: BILIRUBIN,URINE NEG (NEG); CLARITY,URINE CLEAR; COLOR,URINE YELLOW; GLUCOSE,URINE NEG (NEG); NITRITE,URINE NEG (NEG); RBC,URINE OCC /HPF (0-2); UROBILINOGEN,URINE 1 mg/dL (0.2 mg/dL)
[2016-12-15 18:26] LABS: BACTERIA,URINE FEW /HPF (0-FEW); SQUAMOUS EPITHELIAL CELL,UR MOD /LPF
--- NOTE | 2016-12-15 18:37 | RAD ---
CHEST PA LATERAL dated 12/15/2016 6:20 PM. Comparison: 09/11/2016 Clinical Indication: Pt 440lbs, difficulty keeping still and holding breath. Pt has shortness of air. would like read on this exam. Prior imaging sent to compare. SHORTNESS OF BREATH. Findings: PA and lateral views were obtained. Heart and mediastinal contours are stable. Mild elevation of right hemidiaphragm. There are prominent interstitial markings, left greater than right. Linear bands of increased density at the left base and left upper lobe. No consolidation or pleural effusion. No pneumothorax. Impression: Prominent interstitial markings with linear bands of increased density in the left upper lobe and left lower lobe, nonspecific. This could represent atelectasis or early pneumonia. Underlying mild edema not excluded. Electronically signed by: Daniel Thao MD (12/15/2016 6:33 PM)
[2016-12-15 19:17] VITALS: BP 132/56
--- NOTE | 2016-12-15 20:50 | EKG ---
[address] [address] Test Date: 2016-12-15 Test Time: 20:49:06 Pat Name: RICCI LEVINE Department: Room: 119 A Gender: M Rn Clinical: : 1950 Requested By: BERNA VU Order Number: [id number] Reading MD: Measurements Intervals [place] Rate: 74 P: NV: QRS: -21 QRSD: 98 T: 147 QT: 380 QTc: 422 Interpretive Statements ATRIAL FIBRILLATION VENTRICULAR PREMATURE COMPLEX(ES) LEFTWARD AXIS R-S TRANSITION ZONE IN V LEADS DISPLACED TO THE LEFT QRS(T) CONTOUR ABNORMALITY CONSIDER INFERIOR INFARCT T ABNORMALITY IN HIGH LATERAL LEADS RI6.01 Unconfirmed report Compared to ECG 10/13/2016 13:54:33 Left-axis deviation now present Myocardial infarct finding now present T-wave abnormality now present Sinus rhythm no longer present
[2016-12-15] MEDS ORDERED: INSULIN DETEMIR 300 UNITS/3 ML INSULN.PEN. SQ SCH (21:00)
[2016-12-15] MEDS: SUCRALFATE 1 GM TABLET. PO SCH (21:09)
[2016-12-15] MEDS: NYSTATIN 100,000 UNIT/GM TOPICAL CREAM 15GM TUBE. TP SCH (21:09)
[2016-12-15] MEDS: metFORMIN 500 MG TABLET PO SCH (21:10)
[2016-12-15] MEDS: DRONEDARONE HCL 400 MG TABLET PO SCH (21:11)
[2016-12-15] MEDS: CARVEDILOL 12.5 MG TABLET PO SCH (21:11)
[2016-12-15 21:13] LABS: PLT ESTIMATE DECREASED (ADEQUATE)
[2016-12-15 21:14] LABS: ANISOCYTOSIS SLIGHT; OVALOCYTES OCC; POLYCHROMASIA SLIGHT
[2016-12-15 23:41] VITALS: BP 138/71
[2016-12-16 05:29] VITALS: BP 122/77
[2016-12-16 06:14] LABS: BASO % 1 % (0-3); EOS # 0.1 x10^3/uL (0.0-0.7); EOS % 2 % (0-3); HEMATOCRIT 27.8 % (39.0-53.0); HEMOGLOBIN 8.9 g/dL (13.0-17.5); LYMPH # 1.1 x10^3/uL (1.0-4.8); LYMPH % 26 % (24-48); MEAN CORPUSCULAR HEMOGLOBIN 25 pg (25-35); MEAN CORPUSCULAR HGB CONC 32 g/dL (31-37); MEAN CORPUSCULAR VOLUME 77 fL (79-100); MONO % 23 % (0-9); NEUT # 2.2 x10^3uL (1.8-7.7); NEUT % 49 % (31-73); PLATELET COUNT 92 x10^3/uL (140-400); RED BLOOD COUNT 3.61 x10^6/uL (4.30-5.70); RED CELL DISTRIBUTION WIDTH 21.7 % (11.5-14.5); WHITE BLOOD COUNT 4.4 x10^3/uL (4.0-11.0)
[2016-12-16 06:15] LABS: CREATININE 0.9 mg/dL (0.7-1.3); GFR 84.2; POTASSIUM 3.9 mmol/L (3.5-5.1)
[2016-12-16] MEDS ORDERED: PANTOPRAZOLE 40 MG TABLET. PO SCH (07:30)
[2016-12-16] MEDS: SUCRALFATE 1 GM TABLET. PO SCH ×2 (07:35→12:00)
[2016-12-16] MEDS: DRONEDARONE HCL 400 MG TABLET PO SCH (07:36)
[2016-12-16] MEDS: metFORMIN 500 MG TABLET PO SCH (07:36)
[2016-12-16] MEDS: CARVEDILOL 12.5 MG TABLET PO SCH (07:36)
[2016-12-16] MEDS: NYSTATIN 100,000 UNIT/GM TOPICAL CREAM 15GM TUBE. TP SCH ×2 (07:38→10:37)
[2016-12-16] MEDS: INSULIN ASPART 300 UNITS/3 ML INSULN.PEN SQ SCH ×2 (07:54→12:00)
[2016-12-16] MEDS ORDERED: MIRABEGRON 25 MG TAB.ER.24H PO SCH (09:00)
[2016-12-16] MEDS ORDERED: FUROSEMIDE 40 MG TABLET PO SCH (09:00)
[2016-12-16] MEDS ORDERED: ASPIRIN 81 MG TAB.CHEW PO SCH (09:00)
[2016-12-16] MEDS ORDERED: COLLAGENASE 250 UNIT/GM TOPICAL OINTMENT 30GM TUBE. TP SCH (09:00)
--- NOTE | 2016-12-16 09:14 | PDOC2 ---
CARDIAC CONSULT DATE OF CONSULT Date Of Consult DATE: 12/16/16 TIME: 08:54 REASON FOR CONSULT Reason for Consult Shortness of breath REFERRING PHYSICIAN Referring Physician Dr. Nato Uribe HPI History of Present Illness Mr. Vaca is a very pleasant 66 yo M who is well known to our cardiovascular group. The patient follows closely with my partner, Dr. Ortiz. The patient has a history of paroxysmal atrial fibrillation, mild to moderate aortic valve stenosis, essential hypertension, hyperlipidemia, mild carotid artery disease, and morbid obesity. The patient was last seen in our office in March 2016, and was noted to be doing relatively well at that time. The patient reports that he has been having progressively worsening symptoms of shortness of breath over the past several days. He was seen by his primary care physician, Dr. Uribe, yesterday and noted to be quite short of breath. Unfortunately, I do not have outside records available to me to review at the moment. In any event, the patient was subsequently admitted for further evaluation and management. The patient denies any recent episodes of chest pain, palpitations, or lightheadedness. His work up thus far demonstrates underlying anemia, negative troponin, and mildly elevated BNP. His CXR did not demonstrate any significant pulmonary congestion. According to nursing staff, the patient did not require diuresis, and has been oxygenating relatively well on room air over night. He has remained hemodynamically stable, and has no other particular complaints this morning. PAST MEDICAL HISTORY Past Medical History Paroxysmal atrial fibrillation, essential hypertension, hyperlipidemia, morbid obesity, chronic venous insufficiency, mild carotid artery disease, mild to moderate aortic stenosis FAMILY HISTORY Family History Noncontributory SOCIAL HISTORY Smoke: No ALCOHOL: rare CURRENT MEDICATIONS Current Medications Current Medications Acetaminophen (Tylenol) 500 mg PRN Q6HRS PRN PO MILD PAIN / TEMP; Start at 17:30 Carvedilol (Coreg) 25 mg BIDWMEALS PO ; Start 12/15/16 at 17:00; Status Cancel Collagenase (Santyl) 30 maciej DAILY TP ; Start 12/16/16 at 09:00; Stop 12/16/16 at 09:00; Status DC Dronedarone (Multaq) 400 mg BID PO Last administered on 12/16/16t 07:36; Start 12/15/16 at 21:00 Furosemide (Lasix) 40 mg DAILY PO ; Start 12/16/16 at 09:00; Stop 12/16/16 at 09 :00; Status DC Insulin Aspart (NovoLOG) 15 units TIDWMEALS SQ ; Start 12/15/16 at 17:30; Stop 12/15/16 at 18:26; Status DC Nystatin (Mycostatin) 1 maciej TID TP Last administered on 12/16/16 07:38; Start 12/15/16 at 21:00 Pantoprazole Sodium (Protonix) 40 mg DAILYAC PO Last administered on 12/16/16 07:35; Start 12/16/16 at 07:30 Sucralfate (Carafate) 1 gm QIDACHS PO Last administered on 12/16/16 07:35; Start 12/15/16 at 21:00 Zolpidem Tartrate (Ambien) 5 mg PRN QHS PRN PO INSOMNIA, MAY REPEAT X1; Start 12/15/16 at 17:30 Insulin Detemir (Levemir) 35 units QHS SQ Last administered on 12/15/16 21:50 ; Start 12/15/16 at 21:00 Metformin HCl (Glucophage) 1,000 mg BIDWMEALS PO Last administered on 07:36; Start 12/15/16 at 17:30 Non-Formulary Medication 1 tab DAILY PO ; Start 12/16/16 at 09:00; Status UNV Aspirin (Children'S Aspirin) 81 mg DAILY PO Last administered on 12/16/16 07: 36; Start 12/16/16 at 09:00 Insulin Aspart (NovoLOG) 35 units TIDWMEALS SQ Last administered on 12/16/16 07:54; Start 12/16/16 at 08:00 Carvedilol (Coreg) 25 mg BIDWMEALS PO Last administered on 12/16/16 07:36; Start 12/15/16 at 19:00 Active Scripts Active Carafate (Sucralfate) 1 Gm Tablet 1 Gm PO QIDACHS Pantoprazole Sodium 40 Mg Tablet.dr 40 Mg PO DAILYAC Mapap (Acetaminophen) 500 Mg Tablet 500 Mg PO PRN Q6HRS PRN Reported Vitamin C (Ascorbic Acid) 1,000 Mg Tablet 1,000 Mg PO DAILY Multi-Day Vitamins (Multivitamin) 1 Each Tablet 1 Tab PO DAILY Aspirin 81 Mg Tab.chew 81 Mg PO DAILY Ambien (Zolpidem Tartrate) 5 Mg Tablet 1 Tab PO QHS PRN LAST DOSE GIVEN: DATE: YESTERDAY TIME: AT BEDTIME NEXT DOSE DUE: DATE: TODAY TIME: AT BEDTIME IF NEEDED Coreg (Carvedilol) 25 Mg Tablet 1 Tab PO BID LAST DOSE GIVEN: DATE: TIME: AM NEXT DOSE DUE: DATE: TIME: PM Basaglar Kwikpen U-100 (Insulin Glargine,Hum.rec.anlog) 100 Unit/1 Ml Insuln.pen 35 Unit SQ HS LAST DOSE GIVEN: DATE: YESTER TIME: AT BEDTIME NEXT DOSE DUE: DATE: TODAY TIME: AT BEDTIME Nystatin 15 Gm Cream..g. 1 Maciej TP TID LAST DOSE GIVEN: DATE: TIME: AM NEXT DOSE DUE: DATE: TIME: AFTERNOON Multaq (Dronedarone Hcl) 400 Mg Tablet 1 Tab PO BID LAST DOSE GIVEN: DATE: TIME: AM NEXT DOSE DUE: DATE: TIME: PM Metformin Hcl 1,000 Mg Tablet 1 Tab PO BID LAST DOSE GIVEN: DATE: TIME: AM NEXT DOSE DUE: DATE: today TIME: PM Myrbetriq (Mirabegron) 50 Mg Tab.er.24h 1 Tab PO DAILY LAST DOSE GIVEN: DATE: TIME: AM NEXT DOSE DUE: DATE: TOMORR TIME: AM Novolog Flexpen (Insulin Aspart) 100 Unit/1 Ml Insuln.pen 35 Unit SQ TIDWMEALS LAST DOSE GIVEN: DATE: TIME: WITH BREAKFAST NEXT DOSE DUE: DATE: TIME: WITH LUNCH ALLERGIES Allergies: Coded Allergies: Antifungal - Imidazole (Verified Allergy, Intermediate, 12/28/14) all antifungals I S O L A T I O N *CONTACT* (Verified Allergy, Unknown, 12/31/14) mrsa + ROS Review of Systems 14-point organ system ROS is negative other than as described above. PHYSICAL EXAM Physical Exam Irregular, variable S1, 4/6 systolic murmur General: Alert, Oriented X3, No acute distress HEENT: Atraumatic, PERRLA, EOMI Lungs: Clear to auscultation, Normal air movement Abdomen: Normal bowel sounds, Soft, No tenderness Extremities: Other (2+ pitting edema bilaterally) Skin: No rashes Neuro: Normal gait, Normal speech, Strength at 5/5 X4 ext, Normal tone Psych/Mental Status: Mental status NL MUSCULOSKELETAL: No joint tenderness, Full range of motion without pain VITALS Vital Signs Vital Signs Date Time Temp Pulse Resp B/P (MAP) Pulse Ox O2 Delivery O2 Flow Rate FiO2 12/16/16 07:36 70 122/77 12/16/16 05:29 97.7 20 94 Room Air LABS LABS Laboratory Tests Test 12/15/16 17:00 12/15/16 17:05 12/15/16 17:13 12/15/16 18:00 Blood Gas pH 7.45 (7.35-7.46) Blood Gas PCO2 33 mmHg (35-46) Blood Gas PO2 72 mmHg (80-100) Blood Gas HCO3 23 mmol/L (21-28) Arterial Bld O2 Saturation (Calc) 95 % (92-99) FiO2 21 % White Blood Count 4.8 x10^3/uL (4.0-11.0) Red Blood Count 3.73 x10^6/uL (4.30-5.70) Hemoglobin 9.2 g/dL (13.0-17.5) Hematocrit 28.8 % (39.0-53.0) Mean Corpuscular Volume 77 fL (79-100) Mean Corpuscular Hemoglobin 25 pg (25-35) Mean Corpuscular Hemoglobin Concent 32 g/dL (31-37) Red Cell Distribution Width 22.0 % (11.5-14.5) Platelet Count 93 x10^3/uL (140-400) Neutrophils (%) (Auto) 58 % (31-73) Lymphocytes (%) (Auto) 21 % (24-48) Monocytes (%) (Auto) 18 % (0-9) Eosinophils (%) (Auto) 2 % (0-3) Basophils (%) (Auto) 1 % (0-3) Neutrophils # (Auto) 2.8 x10^3uL (1.8-7.7) Lymphocytes # (Auto) 1.0 x10^3/uL (1.0-4.8) Monocytes # (Auto) 0.9 x10^3/uL (0.0-1.1) Eosinophils # (Auto) 0.1 x10^3/uL (0.0-0.7) Basophils # (Auto) 0.0 x10^3/uL (0.0-0.2) Platelet Estimate Decreased (ADEQUATE) Large Platelets Occ Polychromasia Slight Anisocytosis Slight Ovalocytes Occ D-Dimer (Liliana) 0.83 mg/L (0.00-0.50) Sodium Level 141 mmol/L (136-145) Potassium Level 4.1 mmol/L (3.5-5.1) Chloride Level 108 mmol/L (98-107) Carbon Dioxide Level 26 mmol/L (21-32) Anion Gap 7 (6-14) Blood Urea Nitrogen 24 mg/dL (8-26) Creatinine 0.9 mg/dL (0.7-1.3) Estimated GFR (Cockcroft-Gault) 84.2 BUN/Creatinine Ratio 27 (6-20) Glucose Level 102 mg/dL (70-99) Calcium Level 8.0 mg/dL (8.5-10.1) Total Bilirubin 0.4 mg/dL (0.2-1.0) Aspartate Amino Transf (AST/SGOT) 30 U/L (15-37) Alanine Aminotransferase (ALT/SGPT) 27 U/L (16-63) Alkaline Phosphatase 146 U/L (46-116) Creatine Kinase 47 U/L (39-308) Troponin I Quantitative < 0.017 ng/mL (0-0.055) UN-Qar-Q-Type Natriuretic Peptide 603 pg/mL (0-124) Total Protein 7.6 g/dL (6.4-8.2) Albumin 2.6 g/dL (3.4-5.0) Albumin/Globulin Ratio 0.5 (1.0-1.7) Glucose (Fingerstick) 110 mg/dL (70-99) Urine Collection Type Unknown Urine Color Yellow Urine Clarity Clear Urine pH 5.5 Urine Specific [place] 1.015 Urine Protein Neg (NEG-TRACE) Urine Glucose (UA) Neg mg/dL (NEG) Urine Ketones (Stick) Neg mg/dL (NEG) Urine Blood Trace (NEG) Urine Nitrite Neg (NEG) Urine Bilirubin Neg (NEG) Urine Urobilinogen Dipstick 1 mg/dL (0.2 mg/dL) Urine Leukocyte Esterase Neg (NEG) Urine RBC Occ /HPF (0-2) Urine WBC 1-4 /HPF (0-4) Urine Squamous Epithelial Cells Mod /LPF Urine Bacteria Few /HPF (0-FEW) Test 6/20/17 21:07 12/16/16 05:52 12/16/16 07:22 Glucose (Fingerstick) 146 mg/dL (70-99) 117 mg/dL (70-99) White Blood Count 4.4 x10^3/uL (4.0-11.0) Red Blood Count 3.61 x10^6/uL (4.30-5.70) Hemoglobin 8.9 g/dL (13.0-17.5) Hematocrit 27.8 % (39.0-53.0) Mean Corpuscular Volume 77 fL (79-100) Mean Corpuscular Hemoglobin 25 pg (25-35) Mean Corpuscular Hemoglobin Concent 32 g/dL (31-37) Red Cell Distribution Width 21.7 % (11.5-14.5) Platelet Count 92 x10^3/uL (140-400) Neutrophils (%) (Auto) 49 % (31-73) Lymphocytes (%) (Auto) 26 % (24-48) Monocytes (%) (Auto) 23 % (0-9) Eosinophils (%) (Auto) 2 % (0-3) Basophils (%) (Auto) 1 % (0-3) Neutrophils # (Auto) 2.2 x10^3uL (1.8-7.7) Lymphocytes # (Auto) 1.1 x10^3/uL (1.0-4.8) Monocytes # (Auto) 1.0 x10^3/uL (0.0-1.1) Eosinophils # (Auto) 0.1 x10^3/uL (0.0-0.7) Basophils # (Auto) 0.0 x10^3/uL (0.0-0.2) Sodium Level 140 mmol/L (136-145) Potassium Level 3.9 mmol/L (3.5-5.1) Chloride Level 106 mmol/L (98-107) Carbon Dioxide Level 27 mmol/L (21-32) Anion Gap 7 (6-14) Blood Urea Nitrogen 19 mg/dL (8-26) Creatinine 0.9 mg/dL (0.7-1.3) Estimated GFR (Cockcroft-Gault) 84.2 Glucose Level 107 mg/dL (70-99) Calcium Level 8.0 mg/dL (8.5-10.1) EKG EKG Atrial fibrillation with well controlled ventricular rates. There is evidence of possible prior anteroseptal infarct. No acute ischemic changes noted. ECHOCARDIOGRAM Echocardiogram ECHOCARDIOGRAM IMPRESSION (07/04/2015): This is a technically difficult study due to body habitus. There is normal left ventricular chamber size. There is mild concentric left ventricular hypertrophy. Regional wall motion abnormalities cannot be excluded due to poor endocardial definition. The left ventricular systolic function appears normal with an estimated ejection fraction of 55-60%. There is evidence of impaired left ventricular relaxation suggestive of stage I diastolic dysfunction. The left atrium appears mildly dilated. The inferior vena cava is slightly dilated and does not respond normally to respiration, which is consistent with elevated right atrial pressure. There is mild aortic stenosis with a mean gradient of 17 mmHg, a peak gradient of 36 mmHg and a calculated aortic valve area of 1.7 cm2. The estimated pulmonary artery systolic pressure is normal at 18 mmHg. Compared to the report (images were not available for review) of the study dated 08/22/2014, left ventricular dilatation is not seen on this study, but mild aortic stenosis is a new finding. STRESS TEST Stress Test LEXISCAN NUCLEAR STRESS TEST IMPRESSION (03/13/2016): Hemodynamic response: There was a normal heart rate and a normal blood pressure response to stress. Clinical response: There was no chest pain during stress. Arrhythmias: None. Stress ECG: There were no significant stress induced ECG changes. Myocardial perfusion: There was a small, mildly intense, fixed anterolateral defect with no ischemia. Wall motion: Normal. Ejection fraction: 70%. No previous study available for comparison. ASSESSMENT/PLAN Assessment/Plan 1. Shortness of breath, resolved 2. Paroxysmal atrial fibrillation, rate controlled 3. Mild to moderate , stable 4. Moderate carotid artery disease 5. Essential hypertension 6. Hyperlipidemia 7. DMII 8. Morbid obesity Mr. Vaca presented with a several day history of progressively worsening shortness of breath. Etiology of his symptoms is not completely clear at this point. Interestingly, he was noted to be oxygenating well on admission, and has not required diuresis. I do note that his BNP was mildly elevated, but the patient did not have any obvious findings of pulmonary congestion on CXR. On examination today, volume status is difficult to ascertain due to his underlying obesity and known lower extremity venous insufficiency, but the patient reports that he feels back to his baseline. He is noted to be in atrial fibrillation currently, and ECG demonstrates well-controlled ventricular rates. I note that he is currently on Multaq. I think consideration for an alternative antiarrhythmic strategy will need to be considered. I will defer to the patient' s primary sales representative consultant, Dr. Ortiz, for further recommendations with regards to this. I suspect that the patient is currently not on chronic anticoagulation due to bleeding risk and anemia. I will have the patient follow up with Dr. Ortiz next week. At this point in time, however, I do not think any further cardiac diagnostic testing is warranted in the inpatient setting. I would hold off on making any further changes to his cardiac regimen. We will sign off. Please call with any further questions. DAVID ANNE MD Dec 16, 2016 09:14
[2016-12-16 11:28] VITALS: BP 107/60
== END 2016-12-16 15:12 | disposition home or self-care (01) | DRG 189 ==
LOC: 1 SOUTH 15:48
PROVIDERS: ADMIT Family Medicine; ATTEND Family Medicine
DX: J96.01 Acute respiratory failure with hypoxia (principal); Z68.43 Body mass index [BMI] 50.0-59.9, adult; E11.65 Type 2 diabetes mellitus with hyperglycemia; I10 Essential (primary) hypertension; E02 Subclinical iodine-deficiency hypothyroidism; I87.2 Venous insufficiency (chronic) (peripheral); E66.01 Morbid (severe) obesity due to excess calories; E78.5 Hyperlipidemia, unspecified; I35.0 Nonrheumatic aortic (valve) stenosis; I48.0 Paroxysmal atrial fibrillation; E78.00 Pure hypercholesterolemia, unspecified; Z90.49 Acquired absence of other specified parts of digestive tract; Z98.52 Vasectomy status
CPT/HCPCS: 36415; 36600; 71020; 80048; 80053; 80061; 81001; 82550; 82803; 82947; 83880; 84484; 85008; 85027; 85379; 87641; 93005; J1815

== ENCOUNTER → 2017-07-21 | Outpatient (CLI) | payer MEDICARE, BC ==
[2017-06-02 16:44] VITALS: BP 127/69
[~2017-07-21] MED LIST changes: +ASCO10002 PO; +MULT-208 PO
--- NOTE | 2017-07-21 15:54 | RAD ---
Right knee, 3 views, 07/21/2017: History: Knee pain There is severe narrowing of the medial compartment of the knee joint with subchondral sclerosis and marginal spurring. There is moderate spurring at the patellofemoral articulation. No acute fracture or dislocation is identified. There are extensive dystrophic calcifications in the subcutaneous soft tissues of the lower leg IMPRESSION: Moderately severe degenerative change at the right knee joint with dominant involvement of the medial compartment.
[2017-07-21 17:18] LABS: ALBUMIN 2.5 g/dL (3.4-5.0); ALBUMIN/GLOBULIN RATIO 0.4 (1.0-1.7); C REACTIVE PROTEIN 15.7 mg/L (0-3.3); CALCIUM 8.6 mg/dL (8.5-10.1); CREATININE 0.7 mg/dL (0.7-1.3); GFR 112.5; POTASSIUM 4.2 mmol/L (3.5-5.1); TOTAL BILIRUBIN 0.7 mg/dL (0.2-1.0); TOTAL PROTEIN 8.5 g/dL (6.4-8.2)
[2017-07-21 17:42] LABS: BASO % 1 % (0-3); EOS # 0.2 x10^3/uL (0.0-0.7); EOS % 3 % (0-3); HEMATOCRIT 35.8 % (39.0-53.0); HEMOGLOBIN 11.8 g/dL (13.0-17.5); LYMPH % 22 % (24-48); MEAN CORPUSCULAR HEMOGLOBIN 29 pg (25-35); MEAN CORPUSCULAR HGB CONC 33 g/dL (31-37); MEAN CORPUSCULAR VOLUME 89 fL (79-100); MONO # 1.1 x10^3/uL (0.0-1.1); MONO % 24 % (0-9); NEUT # 2.3 x10^3uL (1.8-7.7); NEUT % 49 % (31-73); PLATELET COUNT 102 x10^3/uL (140-400); RED BLOOD COUNT 4.03 x10^6/uL (4.30-5.70); RED CELL DISTRIBUTION WIDTH 16.9 % (11.5-14.5); WHITE BLOOD COUNT 4.7 x10^3/uL (4.0-11.0)
[2017-07-21 20:14] LABS: SEDIMENTATION RATE 75 (0-15)
[2017-07-22 02:07] LABS: T3 UPTAKE 30 % (24-39); THYROPEROXIDASE ANTIBODY 8 IU/mL (0-34)
[2017-07-22 03:12] LABS: HEMOGLOBIN A1C 5.4 % (4.8-5.6)
[2017-07-22 14:30] LABS: FREE T4 1.28 ng/dL (0.76-1.46)
[2017-07-22 14:31] LABS: THYROID STIM HORMONE (TSH) 5.79 uIU/mL (0.358-3.740)
[2017-07-23 06:11] LABS: FREE PSA/PSA RATIO >20.0 % (.); PSA FREE 0.02 ng/mL; PSA TOTAL <0.1 ng/mL (0.0-4.0)
== END | disposition home or self-care (01) ==
LOC: LAB 15:16
PROVIDERS: ATTEND Nurse Practitioner Adult Health
DX: M17.11 Unilateral primary osteoarthritis, right knee (principal); L03.115 Cellulitis of right lower limb; E11.65 Type 2 diabetes mellitus with hyperglycemia; R35.1 Nocturia; R94.6 Abnormal results of thyroid function studies
CPT/HCPCS: 36415; 73562; 80053; 80061; 82043; 83036; 84153; 84154; 84439; 84443; 84479; 85025; 85651; 86140; 86376

== ENCOUNTER → 2018-02-09 | Outpatient (CLI) | payer MEDICARE, BC ==
[2017-06-02 16:44] VITALS: BP 127/69
[~2018-02-09] MED LIST changes: -METF10002 PO; +METF10003 PO
[2018-02-09 15:35] LABS: CALCIUM 8.8 mg/dL (8.5-10.1); CREATININE 1.1 mg/dL (0.7-1.3); GFR 66.6; POTASSIUM 3.8 mmol/L (3.5-5.1)
== END | disposition home or self-care (01) ==
LOC: LAB 14:02
DX: L03.115 Cellulitis of right lower limb (principal); E83.59 Other disorders of calcium metabolism; L97.912 Non-pressure chronic ulcer of unspecified part of right lower leg with fat layer exposed; L08.9 Local infection of the skin and subcutaneous tissue, unspecified; I11.0 Hypertensive heart disease with heart failure; I50.9 Heart failure, unspecified; E11.621 Type 2 diabetes mellitus with foot ulcer; E78.5 Hyperlipidemia, unspecified; E78.00 Pure hypercholesterolemia, unspecified; I48.2 Chronic atrial fibrillation; K21.9 Gastro-esophageal reflux disease without esophagitis; Z79.4 Long term (current) use of insulin; Z80.1 Family history of malignant neoplasm of trachea, bronchus and lung; Z83.3 Family history of diabetes mellitus; Z86.2 Personal history of diseases of the blood and blood-forming organs and certain disorders involving the immune mechanism; Z90.49 Acquired absence of other specified parts of digestive tract; Z68.43 Body mass index [BMI] 50.0-59.9, adult
CPT/HCPCS: 36415; 80048; 83880

== ENCOUNTER → 2018-07-29 | Outpatient (CLI) | payer MEDICARE, BC ==
[2017-06-02 16:44] VITALS: BP 127/69
[~2018-07-29] MED LIST changes: -AMLO5TAB2 PO; +AMLO5TAB7 PO; -METF10003 PO; +METF10007 PO
--- NOTE | 2018-07-29 09:59 | RAD ---
Three-view right knee dated 07/29/2018. Comparison made to 07/21/2017. CLINICAL INDICATION: Knee pain. No known injury. FINDINGS: 3 views of right knee show moderate tricompartmental hypertrophic change with asymmetric medial joint space narrowing. Findings are similar to prior study. No apparent joint effusion or loose body. There are multiple soft tissue calcifications at the proximal calf, unchanged. IMPRESSION: 1. No acute bony abnormality. 2. Moderate tricompartmental degenerative arthrosis, most severe in the medial compartment. 3. Nonspecific soft tissue calcifications of the proximal calf, unchanged. Electronically signed by: Daniel Thao MD (07/29/2018 9:55 AM) [id number]
== END | disposition home or self-care (01) ==
LOC: RAD 09:29
PROVIDERS: ATTEND Family Medicine
DX: M17.11 Unilateral primary osteoarthritis, right knee (principal); K25.9 Gastric ulcer, unspecified as acute or chronic, without hemorrhage or perforation
CPT/HCPCS: 73562

== ENCOUNTER → 2018-12-05 | Outpatient (CLI) | payer MEDICARE, BC ==
[2017-06-02 16:44] VITALS: BP 127/69
[~2018-12-05] MED LIST changes: +AMLO5TAB10 PO; -AMLO5TAB7 PO
[2018-12-05 17:05] LABS: CALCIUM 8.8 mg/dL (8.5-10.1); CREATININE 1.4 mg/dL (0.7-1.3); GFR 50.2; POTASSIUM 4.5 mmol/L (3.5-5.1)
== END | disposition home or self-care (01) ==
LOC: SPEC 16:33
PROVIDERS: ATTEND Family Medicine
DX: E87.1 Hypo-osmolality and hyponatremia (principal)
CPT/HCPCS: 36415; 80048

== ENCOUNTER → 2019-01-02 | Outpatient (CLI) | payer MEDICARE, BC ==
[2017-06-02 16:44] VITALS: BP 127/69
[2019-01-02 11:40] LABS: CALCIUM 8.9 mg/dL (8.5-10.1); CREATININE 1.6 mg/dL (0.7-1.3); GFR 43.1; POTASSIUM 4.8 mmol/L (3.5-5.1)
== END | disposition home or self-care (01) ==
LOC: LAB 10:10
PROVIDERS: ATTEND Nurse Practitioner Family
DX: I35.0 Nonrheumatic aortic (valve) stenosis (principal); I50.32 Chronic diastolic (congestive) heart failure; I48.0 Paroxysmal atrial fibrillation; N17.9 Acute kidney failure, unspecified
CPT/HCPCS: 36415; 80048